=== PATIENT | female | born 1950 | race American Indian/Alaskan Native ===

== ENCOUNTER 2016-09-11 23:22 | Inpatient (IN) | payer MEDICAID, MEDICARE ==
--- NOTE | 2016-09-12 01:28 | Emergency Department Report ---
HPI - General Chief Complaint: Dyspnea/Respdistress Time Seen by Provider: 09/12/16 01:09 - HPI HPI: This is a 66-year-old Afro-[place] female presents to the emergency department from home with the complaint of pain to the left side of the chest and upper abdomen, that wraps around to the side/flank, that has been going on for the past 2 weeks and getting progressive worse. It seems like the symptoms began when the patient slipped while in the bathroom and fell on top of her walker. She never actually hit the floor, hit her head or had any loss of consciousness. Patient complains of some mild abdominal swelling for the past 2 days. This is also associated with some nausea without vomiting. It is also associated with shortness of breath, but denies any fever, cough, wheezing. The patient has been taking some gabapentin and meloxicam for her pain without much relief. She has history of hypertension, neuropathy. She is due to have surgery this for some type of procedure on her C6 and C7 spine. She has a history of back injections due to her sciatica. She's been having trouble walking lately secondary to the pain that occurs in her legs and knees. No recent travel or sick contacts at home. Her primary care doctor is a Dr. Izquierdo. ED Past Medical Hx - Past Medical History Previous Medical History?: Yes Hx Hypertension: Yes Hx Headaches / Migraines: Yes - Surgical History Past Surgical History?: Yes Additional Surgical History: myomectomy tubal ligation - Social History Smoking Status: Never Smoker - Medications Home Medications: Home Medications Medication Instructions Recorded Confirmed Last Taken Type Lisinopril [Zestril] 40 mg PO QDAY 09/10/13 09/10/13 09/10/13 08:00 History Clonidine 0.1 mg 09/12/16 Unknown History Coreg 12.5 mg 09/12/16 Unknown History Cymbalta 09/12/16 Unknown History Meloxicam 09/12/16 Unknown History Neurontin 09/12/16 Unknown History Ranitidine HCl 10 mg 09/12/16 Unknown History ED Review of Systems ROS: Stated complaint: LEFT FLANK PAIN Other details as noted in HPI Comment: All other systems reviewed and negative Constitutional: denies: chills, fever Eyes: denies: eye pain, eye discharge, vision change ENT: denies: ear pain, throat pain Respiratory: shortness of breath. denies: cough Cardiovascular: chest pain. denies: palpitations Gastrointestinal: abdominal pain, nausea. denies: vomiting Genitourinary: denies: urgency, dysuria, discharge Musculoskeletal: arthralgia. denies: back pain Skin: denies: rash, lesions Neurological: denies: headache, numbness Physical Exam - Physical Exam Vital Signs: Vital Signs 09/12/16 09/12/16 00:59 01:03 Temperature 98.7 F Pulse Rate 50 L 50 L Respiratory 17 Rate Blood Pressure 188/100 O2 Sat by Pulse 99 Oximetry Physical Exam: GENERAL: The patient is well-developed well-nourished. HEENT: Normocephalic. Atraumatic. Extraocular motions are intact. Patient has moist mucous membranes. Pupils are equal reactive to light bilaterally. NECK: Supple. Trachea is midline. CHEST/LUNGS: Clear to auscultation. There is no respiratory distress noted. Unable to reproduce patient's left-sided chest pain to palpation. HEART/CARDIOVASCULAR: Regular. There is no tachycardia. There is no gallop rub or murmur. ABDOMEN: Abdomen is soft. Unable to reproduce patient's abdominal tenderness to palpation. No guarding rebound tenderness. Patient has normal bowel sounds. There is no abdominal distention. SKIN: There is no rash. There is no edema. There is no diaphoresis. NEURO: The patient is awake, alert, and oriented. The patient is cooperative. The patient has no focal neurologic deficits. The patient has normal speech. MUSCULOSKELETAL: There is no tenderness or deformity. There is no limitation range of motion. There is no evidence of acute injury. ED Course Vital Signs 09/12/16 09/12/16 00:59 01:03 Temperature 98.7 F Pulse Rate 50 L 50 L Respiratory 17 Rate Blood Pressure 188/100 O2 Sat by Pulse 99 Oximetry ED Medical Decision Making - Lab Data Result diagrams: 09/12/16 01:29 09/12/16 01:29 - EKG Data -: EKG Interpreted by Me EKG shows normal: sinus rhythm, axis, intervals, QRS complexes, ST-T waves Rate: bradycardia (50 bpm) - EKG Data When compared to previous EKG there are: previous EKG unavailable Interpretation: normal EKG (with sinus bradycardia) - Radiology Data Radiology results: report reviewed, image reviewed interpreted by me: Chest x-ray did not show any acute process. Heart is normal shape and size. No effusions. No pneumothorax. No signs of pneumonia seen. X-ray of the abdomen shows some nonspecific bowel gas but no obvious signs of obstruction. CT angiography of the chest shows positive pulmonary emboli identified of the right lower lung subsegmental branches. Mild atelectasis and minimal pleural effusion the bilateral lower lungs. No pneumothorax. Heart is normal size. There is a slight pericardial effusion. - Medical Decision Making 66-year-old female presents to the emergency department with some left-sided chest and abdominal pain. She will occasionally have some shortness of breath. Patient was evaluated with physical exam, labs, imaging EKG. Physical exam the patient does not have any reproducible pain and does not appear toxic but still can use to discuss her discomfort. EKG is normal without ST elevation [place] , ischemia or dysrhythmia. Chest x-ray does not show any acute process. Abdominal x-ray shows a large amount of non-specific bowel gas. Patient's labs are mostly unremarkable but she did have an elevated d-dimer of about 1200. For this reason a CT angiography of the chest was done and came back showing positive pulmonary emboli in the right lower lung subsegmental branches. Patient started on IV heparin and will be admitted to hospital for further evaluation and treatment. The overnight hospitalist is aware of this patient's admission but will hand off the admission to the morning admitting hospitalist. - Differential Diagnosis PE, [place], rib fracture, costochondritis, bowel obstruction Critical Care Time: No Critical care attestation.: If time is entered above; I have spent that time in minutes in the direct care of this critically ill patient, excluding procedure time. ED Disposition Clinical Impression: Hypertensive urgency, Pulmonary embolus, right Chest pain Qualifiers: Chest pain type: unspecified Qualified Code(s): R07.9 - Chest pain, unspecified Abdominal pain Qualifiers: Abdominal location: left upper quadrant Qualified Code(s): R10.12 - Left upper quadrant pain Disposition: OP ADMITTED IP TO THIS HOSP Is pt being admited?: Yes Does the pt Need Aspirin: Yes Condition: Stable Instructions: Chest Pain (ED) Referrals: PRIMARY CARE, [Primary Care Provider] - 3-5 Days Time of Disposition: 05:37
[2016-09-12 01:51] LABS: Hematocrit 41.6 % (30.3-42.9); Hemoglobin 13.6 gm/dl (10.1-14.3); Mean Corpuscular HGB Conc 33 % (30-34); Mean Corpuscular Hemoglobin 30 pg (28-32); Mean Corpuscular Volume 90 fl (79-97); Platelet Count 186 K/mm3 (140-440); Red Blood Count 4.61 M/mm3 (3.65-5.03); Red Cell Distribution Width 13.4 % (13.2-15.2); White Blood Count 6.8 K/mm3 (4.5-11.0)
[2016-09-12 02:02] LABS: INR 1.06 (0.87-1.13)
[2016-09-12 02:03] LABS: Partial Thromboplastin Time 26.9 Sec. (24.2-36.6)
[2016-09-12 02:05] LABS: Creatine Kinase MB 1.9 ng/mL (0.0-4.0)
[2016-09-12 02:07] LABS: Alanine Aminotransferase 14 units/L (7-56); Albumin 4.1 g/dL (3.9-5); Albumin/Globulin Ratio 1.8 %; Alkaline Phosphatase 98 units/L (35-129); Anion Gap 15 mmol/L; Bilirubin,Total 0.3 mg/dL (0.1-1.2); Blood Urea Nitrogen 18 mg/dL (7-17); Calcium 10.6 mg/dL (8.4-10.2); Carbon Dioxide 28 mmol/L (22-30); Chloride 101.7 mmol/L (98-107); Creatine Kinase 105 units/L (30-135); Glucose 120 mg/dL (65-100); Lipase 21 units/L (13-60); Potassium 3.5 mmol/L (3.6-5.0); Sodium 141 mmol/L (137-145); Total Protein 6.4 g/dL (6.3-8.2)
[2016-09-12] MEDS ORDERED: NACL ONE (02:31)
--- NOTE | 2016-09-12 04:19 | Cat Scan Report ---
FINAL REPORT PROCEDURE: CT ANGIO CHEST TECHNIQUE: Computerized tomographic angiography of the chest was performed after the IV injection of iodinated nonionic contrast including image processing. The image data was postprocessed using 2-dimensional multiplanar reformatted (MPR) and 3-dimensional (MIP and/or volume rendered) techniques. HISTORY: CP, elevated dimer COMPARISON: No prior studies are available for comparison. FINDINGS: Heart and pericardium: Heart size is normal. There is a slight pericardial effusion.. Thoracic aorta: Normal. Pulmonary vasculature: There is pulmonary arterial emboli identified in the subsegmental branches of the right lower lung.. Lymph nodes: No enlarged thoracic lymph nodes. Lungs: Mild atelectasis and slight pleural effusion identified in both lower lungs. The central airway is patent.. Pleural space: Mild lower lung effusions. No pneumothorax.. Musculoskeletal structures: Mild degenerative changes of the thoracic spine.. Upper abdominal structures: No significant abnormality. IMPRESSION: Positive pulmonary emboli identified in the right lower lung subsegmental branches. Mild atelectasis and minimal pleural effusion bilateral lower lungs. No pneumothorax. The heart size is normal. There is a slight pericardial effusion. The above critical findings are discussed with the patient's ER care provider at the time of dictation 0315 central standard time on 09/12/2016
[2016-09-12] MEDS ORDERED: HEPARIN 10,000 UNITS/10 ML IV ONE (04:21)
[2016-09-12] MEDS ORDERED: MORPHINE IV ONE (04:37)
[2016-09-12] MEDS: HEPARIN/ 0.45% NACL-25,000 UNIT/500 ML 25,000 UNIT/500 ML BAG IV SCH ×2 (05:23→13:18)
[2016-09-12] MEDS ORDERED: APRESOLINE IV ONE (05:36)
[2016-09-12] MEDS ORDERED: BABY ASPIRIN PO ONE (05:38)
--- NOTE | 2016-09-12 07:14 | Admit Criteria Form ---
Admission Criteria Documentation: PULMONARY EMBOLISM Clinical Indications for Admission to Inpatient Care (Place 'X' for any and all applicable criteria): Admission is indicated by ANY ONE of the following 1,2,3,4,5 [ ]I. Onset of hypoxia [ ]II. Hemodynamic instability 5 [ ]III. Massive pulmonary embolism (eg, acute embolism causing sustained hypotension, pulselessness, or bradycardia)5 [ ]IV. Need for IV narcotics (eg, to treat dyspnea) [ ]V. Current use of home oxygen therapy [ ]. Active bleeding [ ]VII. Recent surgery [ ]VIII. Active peptic ulcer disease [ ]IX. Documented extensive thrombosis (eg, clot in vena cava or above iliofemoral bifurcation) [ ]X. Embolism while on anticoagulation [ ]XI. 6 [X]XII. Appropriate monitoring and therapy cannot be provided in home or outpatient setting. [ ]XIII. Systemic or catheter-directed thrombolysis 5,7 [ ]XIV. Catheter embolectomy and fragmentation 6 [ ]XV. Vena cava filter placement5 [ ]XVI. Severely diminished cardiopulmonary reserve (eg, cor pulmonale, pulmonary hypertension) [ ]XVII. Severe renal failure (eg, GFR less than 30 mL/min/1.73m2 (0.5 mL/sec/ 1.73m2)) [ ]XVIII.Right ventricular dysfunction (eg, by echocardiogram) 6,11 [ ]XIX. Positive cardiac biomarker (eg, troponin T or I > 0.1 ng/mL (mcg/L), highly sensitive troponin I assay greater than 0.014 ng/mL (mcg/L), BNP or NT proBNP > assay threshold)5,8,9 [ ]XX. Known clotting abn or def (eg, liver disease, antithrombin III, protein C, or protein S abnormality) [ ]XXI. History of heparin-induced thrombocytopenia [X]XXII. Inpatient admission required rather than observation care (Also use Pulmonary Embolism: Observation Care guideline as appropriate) because of ANY ONE of the following: [ ] a) Significant autoimmune (thrombocytopenia) or coagulopathic reaction occurs in response to anticoagulation [ ] b) Respiratory symptoms (eg, tachypnea, dyspnea) that are severe or persistent [X] c) Other condition, treatment, or monitoring requiring inpatient admission Extended stay beyond goal length of stay may be needed for 3,28 [ ]a) Hemorrhage or recent surgery [ ]b) Recurrent thromboembolism [ ]c) Persistent hypoxemia [ ]d) Heparin-induced thrombocytopenia The original [facility] [employer] content created by [facility] [employer] has been revised. The portions of the content which have been revised are identified through the use of italic text or in bold, and [facility] has neither reviewed nor approved the modified material. All other unmodified content is copyright [facility] [employer]. Please see references footnoted in the original [facility] edition 2016 Admission Criteria Met: Yes
--- NOTE | 2016-09-12 07:33 | XRay Report ---
ABDOMINAL SERIES: History: Chest and abdominal pain. Erect chest film shows no acute or significant changes involving the heart or lung bonner. There is no evidence of free air beneath the diaphragms. The gas pattern within the abdomen is unremarkable. There is no evidence of bowel dilatation, significant air-fluid levels, or masses. The psoas margins are adequately visualized. IMPRESSION: Normal abdominal series.
[2016-09-12 07:48] LABS: Bilirubin,Urine NEG (Negative); Blood,Urine NEG (Negative); Ketones,Urine TR mg/dL (Negative); Leukocyte Esterase,Urine SM (Negative); Mucus,Urine FEW /HPF; Nitrite,Urine NEG (Negative); Protein,Urine <15 mg/dL mg/dL (Negative); Urobilinogen,Urine < 2.0 mg/dL (<2.0)
[2016-09-12 07:58] LABS: Creatine Kinase 100 units/L (30-135)
[2016-09-12] MEDS ORDERED: BABY ASPIRIN ONE (08:21)
[2016-09-12] MEDS ORDERED: AMBIEN PO PRN (09:30)
[2016-09-12] MEDS ORDERED: K-DUR PO ONE ×2 (09:39→10:14)
[2016-09-12] MEDS ORDERED: DULCOLAX PR PRN (10:00)
[2016-09-12] MEDS ORDERED: D5/0.45NS 1,000 ML IV SCH (10:00)
[2016-09-12] MEDS ORDERED: CYMBALTA 30 MG PO SCH (10:00)
[2016-09-12] MEDS ORDERED: NON-FORMULARY (Coreg 12.5 MG) PO SCH (10:00)
[2016-09-12] MEDS ORDERED: ALUM-MAG HYDROX-SIMETH 200-200-20MG/5ML PO PRN (10:00)
[2016-09-12] MEDS ORDERED: COREG ONE (10:35)
[2016-09-12] MEDS ORDERED: MORPHINE ONE (10:35)
[2016-09-12] MEDS ORDERED: CYMBALTA ONE (10:36)
[2016-09-12] MEDS: CYMBALTA PO SCH (10:49)
[2016-09-12] MEDS: MORPHINE IV PRN ×2 (10:50→21:51)
[2016-09-12] MEDS ORDERED: COREG PO SCH (11:00)
[2016-09-12] MEDS ORDERED: NORMODYNE IV PRN (11:00)
[2016-09-12] MEDS ORDERED: NORMODYNE IV ONE (11:09)
--- NOTE | 2016-09-12 11:32 | Consultation ---
History of Present Illness Consult date: 09/12/16 Requesting physician: DEIRDRE CRUZ History of present illness: PULMONARY/CCM CONSULT NOTE (full dictation # [id number]) Please see dictated notes for full details Medications and Allergies Allergies Allergy/AdvReac Type Severity Reaction Status Date / Time amlodipine Allergy Rash Verified 09/10/13 21:27 hydralazine Allergy Hives Verified 09/12/16 10:31 hydrochlorothiazide Allergy Rash Verified 09/10/13 21:27 Sulfa (Sulfonamide Allergy Rash Verified 09/10/13 21:27 Antibiotics) Home Medications Medication Instructions Recorded Confirmed Last Taken Type Lisinopril [Zestril] 40 mg PO QDAY 09/10/13 09/12/16 09/10/13 08:00 History Clonidine 0.1 mg 09/12/16 Unknown History Coreg 12.5 mg 09/12/16 Unknown History Cymbalta 09/12/16 Unknown History Meloxicam 09/12/16 Unknown History Neurontin 09/12/16 Unknown History Ranitidine HCl 10 mg 09/12/16 Unknown History Active Meds: Active Medications Al Hydrox/Mg Hydrox/Simethicone (Alum-Mag Hydrox-Simeth [id number]/5ml) 30 ml PO Q4H PRN PRN Reason: Indigestion Bisacodyl (Dulcolax) 10 mg [place] QDAY PRN PRN Reason: constipation unrelieved by MOM Carvedilol (Coreg) 12.5 mg PO BIDBL [facility] Last Admin: 09/12/16 10:49 Dose: 12.5 mg Duloxetine HCl (Cymbalta) 30 mg PO QDAY [facility] Last Admin: 09/12/16 10:49 Dose: 30 mg Heparin Sodium/Sodium Chloride (Heparin/ 0.45% Nacl-25,000 Unit/500 Ml) 25,000 unit in 500 mls @ 21 mls/hr IV TITR DARELL; 1,050 UNITS/HR PRN Reason: Protocol Last Titration: 09/12/16 10:02 Dose: 0 units/hr, 0 mls/hr Dextrose/Sodium Chloride (D5/0.45ns) 1,000 mls @ 42 mls/hr IV DIRECT DARELL Labetalol HCl (Normodyne) 10 mg IV Q6H PRN PRN Reason: Blood Pressure Magnesium Hydroxide (Milk Of Magnesia) 30 ml PO Q4H PRN PRN Reason: Constipation Morphine Sulfate (Morphine) 2 mg IV Q4H PRN PRN Reason: Pain, Moderate (4-6) Last Admin: 09/12/16 10:50 Dose: 2 mg Ondansetron HCl (Zofran) 4 mg IV Q8H PRN PRN Reason: N/V unrelieved by Nixon Mcdonnell (Senokot) 8.6 mg PO BID PRN PRN Reason: Constipation Zolpidem Tartrate (Ambien) 5 mg PO QHS PRN PRN Reason: Sleeplessness Physical Examination Vital signs: Vital Signs Pulse Ox 90 09/11/16 23:14 Results - Laboratory Findings CBC and BMP: 09/12/16 01:29 09/12/16 01:29 PT/INR, D-dimer PT 13.7 Sec. (12.2-14.9) 09/12/16 01:29 INR 1.06 (0.87-1.13) 09/12/16 01:29 D-Dimer 1320.93 ng/mlDDU (0-234) H 09/12/16 01:29
--- NOTE | 2016-09-12 12:06 | Consultation ---
History of Present Illness Consult date: 09/12/16 Consult reason: hypertension History of present illness: This is a 66yr old woman reports a history of sciatica and is wheelchair bound due to trouble walking and pain in her knees presents to the ED with the complaints left sided pain. Patient reports 2 weeks ago she fell while in the bathroom hitting injuring her left side. Pain has progressively worsened for the past 2 weeks. She denies loss of consciousness. Noted hypertensive, BP 209/ 98. Patient on clonidine, coreg and lisinopril for management at home. Her ECG shows a sinus bradycardia rate 50, otherwise normal. Found to have an acute pulmonary embolism by chest CTA and admitted for treatment. Cardiac consultation requested for hypertension management. Medications and Allergies Allergies Allergy/AdvReac Type Severity Reaction Status Date / Time amlodipine Allergy Rash Verified 09/10/13 21:27 hydralazine Allergy Hives Verified 09/12/16 10:31 hydrochlorothiazide Allergy Rash Verified 09/10/13 21:27 Sulfa (Sulfonamide Allergy Rash Verified 09/10/13 21:27 Antibiotics) Home Medications Medication Instructions Recorded Confirmed Last Taken Type Lisinopril [Zestril] 40 mg PO QDAY 09/10/13 09/12/16 09/10/13 08:00 History Clonidine 0.1 mg 09/12/16 Unknown History Coreg 12.5 mg 09/12/16 Unknown History Cymbalta 09/12/16 Unknown History Meloxicam 09/12/16 Unknown History Neurontin 09/12/16 Unknown History Ranitidine HCl 10 mg 09/12/16 Unknown History Active Meds: Active Medications Al Hydrox/Mg Hydrox/Simethicone (Alum-Mag Hydrox-Simeth [phone]/5ml) 30 ml PO Q4H PRN PRN Reason: Indigestion Bisacodyl (Dulcolax) 10 mg [place] QDAY PRN PRN Reason: constipation unrelieved by MOM Carvedilol (Coreg) 12.5 mg PO BIDBL [facility] Last Admin: 09/12/16 10:49 Dose: 12.5 mg Duloxetine HCl (Cymbalta) 30 mg PO QDAY [facility] Last Admin: 09/12/16 10:49 Dose: 30 mg Heparin Sodium/Sodium Chloride (Heparin/ 0.45% Nacl-25,000 Unit/500 Ml) 25,000 unit in 500 mls @ 21 mls/hr IV TITR DARELL; 1,050 UNITS/HR PRN Reason: Protocol Last Titration: 09/12/16 10:02 Dose: 0 units/hr, 0 mls/hr Dextrose/Sodium Chloride (D5/0.45ns) 1,000 mls @ 42 mls/hr IV DIRECT DARELL Magnesium Hydroxide (Milk Of Magnesia) 30 ml PO Q4H PRN PRN Reason: Constipation Morphine Sulfate (Morphine) 2 mg IV Q4H PRN PRN Reason: Pain, Moderate (4-6) Last Admin: 09/12/16 10:50 Dose: 2 mg Ondansetron HCl (Zofran) 4 mg IV Q8H PRN PRN Reason: N/V unrelieved by Nixon Mcdonnell (Senokot) 8.6 mg PO BID PRN PRN Reason: Constipation Zolpidem Tartrate (Ambien) 5 mg PO QHS PRN PRN Reason: Sleeplessness Physical Examination Vital Signs Pulse Ox 90 09/11/16 23:14 General appearance: no acute distress HEENT: Positive: PERRL Neck: Positive: trachea midline Cardiac: Positive: Reg Rate and Rhythm Lungs: Positive: Decreased Breath Sounds Results 09/12/16 01:29 09/12/16 01:29 EKG interpretations - EKG Sinus rhythms and dysrhythmias: sinus bradycardia Assessment and Plan Acute Pulmonary embolism by CTA on IV heparin Hypertension -uncontrolled allergy to norvasc, hydralazine and hctz Hx of Sciatica Plan: Echocardiogram for LVEF assessment. Will stop clonidine and coreg secondary to sinus bradycardia on presentation. BP management with diovan.
--- NOTE | 2016-09-12 13:39 | History and Physical Report ---
History of Present Illness Date of examination: 09/12/16 Date of admission: 09/12/16 09:30 Chief complaint: Shortness of breath and Left lower chest pain for 1 week History of present illness: 65-year-old female with history of hypertension chronic lower back pain and apparently C-spine disc disease with bilateral lower extremity weakness, basically wheelchair bound for more than 2 months presents to the emergency room with above complaint and was found to have an acute right lower lobe subsegmental pulmonary embolism on CTA of the chest and she is admitted for further management. He says she had a fall in the bathroom 2 weeks ago and since then she has been having pain in the left lower chest and under the left breast She says she was advised to have surgery on her C-spine is considering it at [facility] when she had a fall 2 weeks ago and has not rescheduled her appointment Past History Past Medical History: GERD, hypertension, other (low backache) Past Surgical History: Other ( myomectomy) Social history: no significant social history Family history: diabetes Medications and Allergies Allergies Allergy/AdvReac Type Severity Reaction Status Date / Time amlodipine Allergy Rash Verified 09/10/13 21:27 hydralazine Allergy Hives Verified 09/12/16 10:31 hydrochlorothiazide Allergy Rash Verified 09/10/13 21:27 Sulfa (Sulfonamide Allergy Rash Verified 09/10/13 21:27 Antibiotics) Home Medications Medication Instructions Recorded Confirmed Last Taken Type Lisinopril [Zestril] 40 mg PO QDAY 09/10/13 09/12/16 09/10/13 08:00 History Clonidine 0.1 mg 09/12/16 Unknown History Coreg 12.5 mg 09/12/16 Unknown History Cymbalta 09/12/16 Unknown History Meloxicam 09/12/16 Unknown History Neurontin 09/12/16 Unknown History Ranitidine HCl 10 mg 09/12/16 Unknown History Active Meds: Active Medications Al Hydrox/Mg Hydrox/Simethicone (Alum-Mag Hydrox-Simeth [phone]/5ml) 30 ml PO Q4H PRN PRN Reason: Indigestion Bisacodyl (Dulcolax) 10 mg [place] QDAY PRN PRN Reason: constipation unrelieved by MOM Duloxetine HCl (Cymbalta) 30 mg PO QDAY [facility] Last Admin: 09/12/16 10:49 Dose: 30 mg Famotidine (Pepcid) 20 mg PO QDAY [facility] Heparin Sodium/Sodium Chloride (Heparin/ 0.45% Nacl-25,000 Unit/500 Ml) 25,000 unit in 500 mls @ 21 mls/hr IV TITR DARELL; 1,050 UNITS/HR PRN Reason: Protocol Last Admin: 09/12/16 13:18 Dose: 1,120 units/hr, 22.4 mls/hr Dextrose/Sodium Chloride (D5/0.45ns) 1,000 mls @ 42 mls/hr IV DIRECT DARELL Losartan Potassium (Cozaar) 100 mg PO QDAY [facility] Magnesium Hydroxide (Milk Of Magnesia) 30 ml PO Q4H PRN PRN Reason: Constipation Morphine Sulfate (Morphine) 2 mg IV Q4H PRN PRN Reason: Pain, Moderate (4-6) Last Admin: 09/12/16 10:50 Dose: 2 mg Ondansetron HCl (Zofran) 4 mg IV Q8H PRN PRN Reason: N/V unrelieved by Nixon Mcdonnell (Senokot) 8.6 mg PO BID PRN PRN Reason: Constipation Zolpidem Tartrate (Ambien) 5 mg PO QHS PRN PRN Reason: Sleeplessness Review of Systems Constitutional: weakness, no weight loss, no weight gain, no fever, no chills Ears, nose, mouth and throat: no ear pain, no nasal discharge, no sore throat, no headache Cardiovascular: chest pain (in the left lower chest which is nonexertional), high blood pressure, no orthopnea, no palpitations, no syncope, no lightheadedness, no shortness of breath Respiratory: no cough, no shortness of breath Gastrointestinal: no abdominal pain, no nausea, no vomiting, no diarrhea, no constipation, no melena Genitourinary Female: no dysuria, no urinary frequency, no stress incontinence, no urge incontinence Rectal: no pain Musculoskeletal: low back pain, limitation of motion Neurological: weakness (in both lower extremities), no head injury, no seizures , no syncope Psychiatric: no anxiety, no depression Endocrine: no polyuria, no nocturia Exam - Constitutional Vitals: Temp Pulse Resp BP Pulse Ox 98.7 F 58 L 10 L 170/89 99 09/12/16 00:59 09/12/16 12:00 09/12/16 12:00 09/12/16 12:00 09/12/16 00:59 General appearance: Present: no acute distress, well-nourished - EENT Eyes: Present: PERRL, EOM intact ENT: hearing intact, clear oral mucosa, no thrush - Neck Neck: Present: supple, normal ROM - Respiratory Respiratory effort: normal Respiratory: bilateral: CTA - Cardiovascular Rhythm: regular Heart Sounds: Present: S1 & S2 - Extremities Extremities: No edema - Abdominal General gastrointestinal: Present: soft, non-tender. Absent: hepatomegaly, splenomegaly - Rectal Rectal Exam: deferred - Integumentary Integumentary: Present: clear - Musculoskeletal Musculoskeletal: other (bilateral lower extremity weakness, per power in the lower extremities is 2 over 5 and in the upper extremities it is 4 over 5) Results - Labs CBC & Chem 7: 09/12/16 01:29 09/12/16 01:29 Assessment and Plan - Patient Problems (1) Pulmonary embolus, right Current Visit: Yes Status: Acute Plan to address problem: Started on intravenous heparin With to ICU Cardiology and pulmonary consults on board (2) Paraparesis of both lower limbs Current Visit: Yes Status: Acute Plan to address problem: PT and OT consult This needs to be addressed as an outpatient once she stabilized on her pulmonary embolism (3) Hypertensive urgency Current Visit: Yes Status: Acute Plan to address problem: Continue beta norman She has mild bradycardia Start on losartan She is allergic to several antihypertensives
[2016-09-12] MEDS ORDERED: DIOVAN PO ONE (14:00)
[2016-09-12] MEDS ORDERED: COZAAR PO SCH (14:00)
[2016-09-12] MEDS: DIOVAN PO SCH ×2 (16:15→21:52)
--- NOTE | 2016-09-13 02:23 | Consultation ---
CONSULTING PHYSICIAN: Milton Cristina MD. REASON FOR CONSULTATION: Critical care admission, acute pulmonary embolus. CHIEF COMPLAINT AND HISTORY OF PRESENT ILLNESS: The patient is a 66-year-old -[place] female with past medical history amongst other things significant for severe sciatica that has degenerated to the point where she is mostly immobile, came into the Emergency Room complaining of left side of her chest and upper abdominal pain that was rocking into the flank. She stated that she had falling in her bathroom about a couple of weeks ago trying to clean herself up without assistance which she normally has. Never thought there was anything major, she did not actually hit the fall; however, over the preceding couple of days it has been increased to a point where she has had difficulty breathing. Denied any particular chest pains where she had some nausea without vomiting. She was apparently being prepped for some surgical procedure on really nonspecific symptoms; however, as part of the workup, thankfully a CTA was done which reportedly revealed pulmonary emboli. She was placed on IV heparin drip and the plan was to transfer her to the Intensive Care Unit. When I stopped by to see her, she was resting in the ER. She was on room air, talking to me in full sentences. Denied any gross or streaky hemoptysis. She did admit to some left lower extremity swelling. Denies tobacco use or abuse history whatsoever. That really is as much of the history of presentation as I have. PAST MEDICAL HISTORY: Again, significant for hypertension, migraines, sciatica. PAST SURGICAL HISTORY: She has had a myomectomy and tubal ligation. MEDICATIONS: She was on at the time I stopped by to see her, according to the medication administration record included the following: Coreg 12.5 mg p.o. b.i.d., Cymbalta 30 mg p.o. daily, D5 half NS at 42 mL per hour. She was on IV heparin drip per pulmonary embolus protocol, morphine 2 mg IV q. 4 hours p.r.n. pain, Zofran 4 mg IV q. 8 hours p.r.n. nausea and vomiting, and Ambien 5 mg p.o. at bedtime p.r.n. insomnia. ALLERGIES: To amlodipine, to hydralazine, to hydrochlorothiazide. Nature of this allergy is unknown. DIET: Slightly obese lady, denies any acute weight loss or gain in the preceding few weeks to months. FAMILY AND SOCIAL HISTORY: Lives in the community. Denies alcohol, tobacco, or illicit drug use or abuse. REVIEW OF SYSTEMS: No overt loss of consciousness. No new onset seizures. She has had the left lower extremity and left-sided pain and weakness. Denies gross hematochezia or melena. No gross hematuria or dysuria. No hematemesis. No hemoptysis. Denies any odynophagia or dysphagia. Denies any change in her voice or hoarseness. Complete review of systems was obtained. Pertinent positives and/or negatives as in body of history above, otherwise they are noncontributory. PHYSICAL EXAMINATION: VITAL SIGNS: At presentation in the emergency room, she was afebrile, temperature 98.0, pulse was 50, respiratory rate was 17, blood pressure was 209/98, oxygen sats were 99%. Inspired oxygen concentration was not recorded. HEAD, EYES, EARS, NOSE, AND THROAT: Pupils are equal, round, reactive to light, about 3 mm. Extraocular muscle movements are intact. Oropharynx is Mallampati #2 oropharynx, mild oropharyngeal pallor. LUNGS: Auscultation of both lung bonner, lungs are clear bilaterally, no wheezing. HEART: Heart sounds 1 and 2 are heard, irregular rate and rhythm at the time of my evaluation. ABDOMEN: Soft, full, bowel sounds are positive. Tender in the left upper quadrant area laterally. EXTREMITIES: Without overt digital clubbing, cyanosis, or pedal edema. NEUROLOGIC: The exam is limited more by pain. LABORATORY DATA: For my review are as follows: White cell count 6800, hemoglobin 13.6, hematocrit 41.6, platelets 186. INR 1.06. D-dimer was elevated at 1320. Serum sodium 141, potassium 3.5, chloride 102, bicarbonate 28, BUN 18, creatinine 0.5, and glucose 120. Cardiac enzymes within normal limits. Urinalysis unremarkable. Radiographic studies have been reviewed. I have also reviewed the radiologist's interpretation. I do see filling defects in the right lower lobe branches of the right pulmonary artery. There are some areas of atelectasis plus possible small pleural effusions. It is unclear if this is the right subclavian artery, appears to have a tortuous course through the first of all going anteriorly around the thyroid area and then probably headed downwards what may correspond to the pulsations that I feel during the exam in the right carotid area, ASSESSMENT AND PLAN: I should mention that the lung windows are essentially unremarkable again except for the basilar atelectasis/dependent atelectasis. From a respiratory standpoint, she is relatively stable and on room air. Again, I am bothered about the abnormal pulsations that I do feel in the right carotid region, does not appear to be carotid artery. We will continue the IV heparin drip for now, keep a close eye on her and continue to treat for PE protocol. Supplemental oxygen will be given as necessary to keep sats greater than or equal to 92%. Aspiration precautions will be maintained. From a cardiovascular standpoint, I will continue the IV heparin therapy for now. Again, her arrhythmia, she goes as high as the 80s and then goes right down to the mid 50s without much provocation. The EKG showed a sinus bradycardia at that time, but I will try and repeat another EKG to make sure we are not missing something, plus or minus get Cardiology evaluation. Cardiac enzymes are unremarkable and CTA does not show any particular dissection. I will go ahead and discuss with the radiologist, this might be a normal variant of the subclavian artery on that side. Blood pressures are running high. I was going to use p.r.n. labetalol, but the bradycardia is bothersome. I was going to use p.r.n. hydralazine, but she has an allergy to it, which I will ask her about that. I will be getting Cardiology assistance with managing her arrhythmia at this point. From a GI and nutritional standpoint, she will be placed on GI prophylaxis. Aspiration precautions will be maintained. Oral nutrition will be the feeding modality of choice. From a renal standpoint, no major electrolyte abnormalities. We will follow her clinically. Inputs and outputs will be monitored. From a SKETCH LINER standpoint, the exam is grossly nonfocal. The left side movement is limited mostly by pain at this point, although she tells me that she is seeing a doctor in the community, it is unclear if she will need Neurology evaluation while she is here. From infectious disease standpoint, no signs and symptoms of overwhelming sepsis. We will follow her clinically. From a general and hospital healthcare maintenance standpoint, she is going to be on GI prophylaxis. She is on full anticoagulation. Flu and pneumonia vaccination will be per protocol. Thank you very much for the consult Dr. Cristina. We will follow her along. With this constellation of symptoms, dysrythmia, the aberrant subclavian vessel, possible risk of bleeding on heparin, we will watch her in the Intensive Care Unit overnight and make a decision on transfer in the morning. I have discussed her case with Vascular and carotid ultrasound has been ordered and we will see if there is any need for Vascular Surgery intervention. Thank you very much for the consult. We will follow her and make further recommendations as picture progresses/becomes clearer. JOB# [id number] AMANDA/YEE
[2016-09-13 06:15] LABS: Basophils % (Auto) 1.1 % (0.0-1.8); Eosinophils % (Auto) 3.6 % (0.0-4.3); Hematocrit 39.4 % (30.3-42.9); Mean Corpuscular HGB Conc 33 % (30-34); Mean Corpuscular Hemoglobin 30 pg (28-32); Mean Corpuscular Volume 90 fl (79-97); Platelet Count 173 K/mm3 (140-440); Red Blood Count 4.37 M/mm3 (3.65-5.03); Red Cell Distribution Width 13.6 % (13.2-15.2); White Blood Count 5.4 K/mm3 (4.5-11.0)
[2016-09-13 06:30] LABS: Anion Gap 16 mmol/L; Blood Urea Nitrogen 15 mg/dL (7-17); Calcium 10.4 mg/dL (8.4-10.2); Carbon Dioxide 24 mmol/L (22-30); Chloride 106.6 mmol/L (98-107); Glucose 105 mg/dL (65-100); Sodium 143 mmol/L (137-145)
[2016-09-13] MEDS: PEPCID PO SCH (09:37)
[2016-09-13] MEDS: CYMBALTA PO SCH (09:37)
[2016-09-13] MEDS: DIOVAN PO SCH ×2 (09:37→21:20)
[2016-09-13] MEDS: MORPHINE IV PRN ×3 (09:39→21:26)
--- NOTE | 2016-09-13 11:15 | Progress Note ---
Assessment and Plan Acute Pulmonary embolism by CTA on IV heparin Hypertension - allergy to norvasc, hydralazine and hctz clonidine and coreg discontinued due to sinus bradycardia on her presenting ECG Hx of Sciatica Plan: Echocardiogram today for LVEF assessment. Optimal BP management with diovan. Subjective Date of service: 09/13/16 Interval history: Patient complains of left sided pain. She denies chest pain and shortness of breath. Objective Vital Signs Temp Pulse Resp Resp BP Pulse Ox 09/13/16 10:00 12 09/13/16 09:39 12 09/13/16 09:37 66 191/111 09/13/16 09:01 61 13 210/113 99 09/13/16 08:01 60 14 210/113 96 09/13/16 07:55 98.3 F 09/13/16 07:00 59 L 11 L 167/90 95 09/13/16 06:01 59 L 9 L 171/80 95 09/13/16 05:01 64 10 L 170/89 94 09/13/16 04:00 62 11 L 160/76 93 09/13/16 03:01 58 L 11 L 184/94 96 09/13/16 02:00 59 L 9 L 155/82 96 09/13/16 01:00 65 10 L 138/92 93 09/13/16 00:55 97.9 F 09/13/16 00:00 61 13 141/76 95 09/12/16 23:00 61 10 L 151/85 95 09/12/16 22:27 63 17 171/101 81 L 09/12/16 22:01 63 13 171/101 96 09/12/16 21:52 160/100 09/12/16 21:00 59 L 15 160/100 96 09/12/16 20:09 97.9 F 09/12/16 20:00 59 L 13 165/89 97 09/12/16 19:00 60 15 156/91 98 09/12/16 18:01 60 9 L 152/86 96 09/12/16 17:01 60 14 122/71 86 09/12/16 16:15 58 L 122/71 09/12/16 16:00 98 F 53 L 10 L 122/71 97 09/12/16 15:01 57 L 11 L 83 L 09/12/16 14:14 68 14 97 09/12/16 13:38 63 14 95 09/12/16 12:00 58 L 10 L 170/89 - Physical Examination General: No Apparent Distress HEENT: Positive: PERRL Neck: Positive: trachea midline Cardiac: Positive: Reg Rate and Rhythm Lungs: Positive: Decreased Breath Sounds - Labs and Meds CBC 09/13/16 Range/Units 05:51 WBC 5.4 (4.5-11.0) K/mm3 RBC 4.37 (3.65-5.03) M/mm3 Hgb 13.0 (10.1-14.3) gm/dl Hct 39.4 (30.3-42.9) % Plt Count 173 (140-440) K/mm3 Lymph # 1.6 (1.2-5.4) K/mm3 [place] # 0.5 (0.0-0.8) K/mm3 Eos # 0.2 (0.0-0.4) K/mm3 Baso # 0.1 (0.0-0.1) K/mm3 Comprehensive Metabolic Panel 09/13/16 Range/Units 05:51 Sodium 143 (137-145) mmol/L Potassium 4.0 (3.6-5.0) mmol/L Chloride 106.6 (98-107) mmol/L Carbon Dioxide 24 (22-30) mmol/L BUN 15 (7-17) mg/dL Creatinine 0.5 L (0.7-1.2) mg/dL Glucose 105 H (65-100) mg/dL Calcium 10.4 H (8.4-10.2) mg/dL - EKG Sinus rhythms and dysrhythmias: sinus bradycardia
--- NOTE | 2016-09-13 11:25 | Progress Note ---
Assessment and Plan - Patient Problems (1) Acute pulmonary embolism Current Visit: Yes Status: Acute Qualifiers: Pulmonary embolism type: P Acute cor pulmonale presence: A Plan to address problem: - continue heparin IV - begin coumadin - no indication for IVC filter placement - prn oxygen therapy (2) Chest pain Current Visit: Yes Status: Acute Qualifiers: Chest pain type: unspecified Qualified Code(s): R07.9 - Chest pain, unspecified Plan to address problem: - resolved (3) Hypertensive urgency Current Visit: Yes Status: Acute Plan to address problem: - begin clonidine 0.1mg q8h - other meds per cardiology - avoid hydralazine (4) Paraparesis of both lower limbs Current Visit: Yes Status: Acute Plan to address problem: - PT/OT - hold on spinal surgery re: acute P.E. for now Subjective Date of service: 09/13/16 Principal diagnosis: Acute Pulmonary Embolus; Uncontrolled HTN Interval history: Seen and examined at bedside; 24 hour events reviewed; nursing and respiratory care staff consulted; no adverse overnight events reported to me; doing better but BP's still running high with accompanying low pulse rate; denies acute chest pains or increased SOB; states that she was on clonidine at home; states that her allergy to hydralazine is real and involves itching and a rash/welts Objective Vital Signs - 12hr 09/13/16 09/13/16 09/13/16 00:00 00:55 01:00 Temperature 97.9 F Pulse Rate 61 65 Respiratory 13 10 L Rate Respiratory Rate [Left Hip] Blood Pressure 141/76 138/92 O2 Sat by Pulse 95 93 Oximetry 09/13/16 09/13/16 09/13/16 02:00 03:01 04:00 Temperature Pulse Rate 59 L 58 L 62 Respiratory 9 L 11 L 11 L Rate Respiratory Rate [Left Hip] Blood Pressure 155/82 184/94 160/76 O2 Sat by Pulse 96 96 93 Oximetry 09/13/16 09/13/16 09/13/16 05:01 06:01 07:00 Temperature Pulse Rate 64 59 L 59 L Respiratory 10 L 9 L 11 L Rate Respiratory Rate [Left Hip] Blood Pressure 170/89 171/80 167/90 O2 Sat by Pulse 94 95 95 Oximetry 09/13/16 09/13/16 09/13/16 07:55 08:00 08:01 Temperature 98.3 F Pulse Rate 60 Respiratory 14 Rate Respiratory Rate [Left Hip] Blood Pressure 210/113 O2 Sat by Pulse 99 96 Oximetry 09/13/16 09/13/16 09/13/16 09:01 09:37 09:39 Temperature Pulse Rate 61 66 Respiratory 13 12 Rate Respiratory Rate [Left Hip] Blood Pressure 210/113 191/111 O2 Sat by Pulse 99 Oximetry 09/13/16 09/13/16 09/13/16 10:00 10:01 11:01 Temperature Pulse Rate 66 60 67 Respiratory 16 16 Rate Respiratory 12 Rate [Left Hip] Blood Pressure 191/111 187/104 O2 Sat by Pulse 98 96 Oximetry Constitutional: no acute distress Eyes: non-icteric ENT: oropharynx moist Neck: supple Effort: normal Ascultation: Bilateral: clear, diminished breath sounds Cardiovascular: regular rate and rhythm Gastrointestinal: normoactive bowel sounds, soft, non-tender, non-distended Integumentary: normal Extremities: no cyanosis, no edema, pulses normal, no ischemia or petechiae Psychiatric: mood appropriate, affect normal CBC and BMP: 09/13/16 05:51 09/13/16 05:51 ABG, PT/INR, D-dimer: PT/INR, D-dimer PT 13.7 Sec. (12.2-14.9) 09/12/16 01:29 INR 1.06 (0.87-1.13) 09/12/16 01:29 D-Dimer 1320.93 ng/mlDDU (0-234) H 09/12/16 01:29 Abnormal lab findings: Abnormal Labs 09/12/16 09/13/16 09/13/16 19:58 05:51 05:51 [place] % (Auto) 9.1 H Heparin Anti-Xa Level 1.04 H Creatinine 0.5 L Glucose 105 H Calcium 10.4 H 09/13/16 08:51 [place] % (Auto) Heparin Anti-Xa Level 0.27 L Creatinine Glucose Calcium Chest x-ray: image reviewed
[2016-09-13] MEDS ORDERED: CATAPRES PO SCH (13:00)
[2016-09-13] MEDS: PROCARDIA XL PO SCH (13:10)
--- NOTE | 2016-09-13 14:59 | Progress Note ---
Assessment and Plan - Patient Problems (1) Pulmonary embolus, right Current Visit: Yes Status: Acute Plan to address problem: Continue intravenous heparin start on warfarin A venous Doppler to rule out DVT as r/o source of pulmonary embolism (2) Paraparesis of both lower limbs Current Visit: Yes Status: Acute Plan to address problem: PT and OT consult This needs to be addressed as an outpatient once she stabilized on her pulmonary embolism (3) Hypertensive urgency Current Visit: Yes Status: Acute Plan to address problem: Isn't allergic to multiple antihypertensives mild bradycardia started on nifedipine Continue ARB Subjective Date of service: 09/13/16 Principal diagnosis: Acute Pulmonary Embolus; Uncontrolled HTN Interval history: Patient alert and oriented No apparent distress Complains of increased sensitivity in the left lower chest but denies any chest pain Objective - Constitutional Vitals: Vital Signs - 12hr 09/13/16 09/13/16 09/13/16 03:01 04:00 05:01 Temperature Pulse Rate 58 L 62 64 Respiratory 11 L 11 L 10 L Rate Respiratory Rate [Left Hip] Blood Pressure 184/94 160/76 170/89 O2 Sat by Pulse 96 93 94 Oximetry 09/13/16 09/13/16 09/13/16 06:01 07:00 07:55 Temperature 98.3 F Pulse Rate 59 L 59 L Respiratory 9 L 11 L Rate Respiratory Rate [Left Hip] Blood Pressure 171/80 167/90 O2 Sat by Pulse 95 95 Oximetry 09/13/16 09/13/16 09/13/16 08:00 08:01 09:01 Temperature Pulse Rate 60 61 Respiratory 14 13 Rate Respiratory Rate [Left Hip] Blood Pressure 210/113 210/113 O2 Sat by Pulse 99 96 99 Oximetry 09/13/16 09/13/16 09/13/16 09:37 09:39 10:00 Temperature Pulse Rate 66 66 Respiratory 12 Rate Respiratory 12 Rate [Left Hip] Blood Pressure 191/111 O2 Sat by Pulse Oximetry 09/13/16 09/13/16 09/13/16 10:01 11:01 12:00 Temperature 98.7 F Pulse Rate 60 67 Respiratory 16 16 Rate Respiratory Rate [Left Hip] Blood Pressure 191/111 187/104 O2 Sat by Pulse 98 96 Oximetry General appearance: Present: no acute distress - EENT Eyes: PERRL, EOM intact ENT: hearing intact, clear oral mucosa - Neck Neck: supple, normal ROM, no masses or JVD - Respiratory Respiratory effort: normal Respiratory: bilateral: CTA - Cardiovascular Rhythm: regular Heart Sounds: Present: S1 & S2 Extremities: No edema - Gastrointestinal General gastrointestinal: Present: soft, non-tender - Integumentary Integumentary: clear - Musculoskeletal Musculoskeletal: strength equal bilaterally - Neurologic Neurologic: CNII-XII intact - Labs CBC & Chem 7: 09/13/16 05:51 09/13/16 05:51 Labs: Abnormal lab results 09/12/16 09/13/16 09/13/16 Range/Units 19:58 05:51 05:51 [place] % (Auto) 9.1 H (0.0-7.3) % Heparin Anti-Xa Level 1.04 H (0.3-0.7) U.I./ml Creatinine 0.5 L (0.7-1.2) mg/dL Glucose 105 H (65-100) mg/dL Calcium 10.4 H (8.4-10.2) mg/dL 09/13/16 Range/Units 08:51 [place] % (Auto) (0.0-7.3) % Heparin Anti-Xa Level 0.27 L (0.3-0.7) U.I./ml Creatinine (0.7-1.2) mg/dL Glucose (65-100) mg/dL Calcium (8.4-10.2) mg/dL
[2016-09-13] MEDS: HEPARIN/ 0.45% NACL-25,000 UNIT/500 ML 25,000 UNIT/500 ML BAG IV SCH (15:15)
[2016-09-13] MEDS: IMDUR PO SCH ×2 (18:12→21:21)
[2016-09-13] MEDS: COUMADIN PO SCH (18:12)
[2016-09-14 05:23] LABS: Hematocrit 38.3 % (30.3-42.9); Hemoglobin 12.6 gm/dl (10.1-14.3)
[2016-09-14 05:30] LABS: INR 1.07 (0.87-1.13)
[2016-09-14 05:40] LABS: Anion Gap 14 mmol/L; Blood Urea Nitrogen 15 mg/dL (7-17); Calcium 10.2 mg/dL (8.4-10.2); Carbon Dioxide 28 mmol/L (22-30); Chloride 101.6 mmol/L (98-107); Glucose 142 mg/dL (65-100); Potassium 3.6 mmol/L (3.6-5.0); Sodium 140 mmol/L (137-145)
[2016-09-14] MEDS: MORPHINE IV PRN ×3 (07:40→21:57)
[2016-09-14] MEDS: IMDUR PO SCH ×2 (10:49→21:56)
[2016-09-14] MEDS: DIOVAN PO SCH ×2 (10:49→21:55)
[2016-09-14] MEDS: PROCARDIA XL PO SCH (10:49)
[2016-09-14] MEDS: CYMBALTA PO SCH (10:49)
[2016-09-14] MEDS: PEPCID PO SCH (10:49)
--- NOTE | 2016-09-14 11:50 | Progress Note ---
Assessment and Plan - Patient Problems (1) Acute pulmonary embolism Current Visit: Yes Status: Acute Qualifiers: Pulmonary embolism type: P Acute cor pulmonale presence: A Plan to address problem: - continue heparin IV - on coumadin at 7.5mg/day - no indication for IVC filter placement - prn oxygen therapy (2) Chest pain Current Visit: Yes Status: Acute Qualifiers: Chest pain type: unspecified Qualified Code(s): R07.9 - Chest pain, unspecified Plan to address problem: - resolved (3) Hypertensive urgency Current Visit: Yes Status: Acute Plan to address problem: - on diovan - other management per cardiology - avoid hydralazine (4) Paraparesis of both lower limbs Current Visit: Yes Status: Acute Plan to address problem: - PT/OT - hold on spinal surgery re: acute P.E. for now Subjective Date of service: 09/14/16 Principal diagnosis: Acute Pulmonary Embolus; Uncontrolled HTN Interval history: Seen and examined at bedside; 24 hour events reviewed; nursing and respiratory care staff consulted; no adverse overnight events reported to me; resting in bed ; feels better; denies any gross bleeding; denies acute chest pains or increased SOB Objective Vital Signs - 12hr 09/14/16 09/14/16 09/14/16 00:00 01:01 02:00 Temperature Pulse Rate 70 78 82 Pulse Rate [ Left Radial] Respiratory 12 12 12 Rate Blood Pressure 106/68 120/74 116/72 Blood Pressure [Left Arm] O2 Sat by Pulse 97 96 97 Oximetry 09/14/16 09/14/16 09/14/16 03:00 04:00 05:00 Temperature Pulse Rate 76 76 73 Pulse Rate [ Left Radial] Respiratory 12 12 12 Rate Blood Pressure 122/82 107/74 122/74 Blood Pressure [Left Arm] O2 Sat by Pulse 95 95 95 Oximetry 09/14/16 09/14/16 09/14/16 06:00 07:00 08:50 Temperature 98.1 F Pulse Rate 73 82 Pulse Rate [ 80 Left Radial] Respiratory 12 15 18 Rate Blood Pressure 132/73 130/88 Blood Pressure 138/87 [Left Arm] O2 Sat by Pulse 96 97 95 Oximetry 09/14/16 09:03 Temperature Pulse Rate 75 Pulse Rate [ Left Radial] Respiratory Rate Blood Pressure Blood Pressure [Left Arm] O2 Sat by Pulse Oximetry Constitutional: no acute distress Eyes: non-icteric ENT: oropharynx moist Neck: supple Effort: normal Ascultation: Bilateral: clear, diminished breath sounds Cardiovascular: regular rate and rhythm Gastrointestinal: normoactive bowel sounds, soft, non-tender, non-distended Integumentary: normal Extremities: no cyanosis, no edema, pulses normal, no ischemia or petechiae Neurologic: normal mental status, pupils equal and round, CN II-XII normal, other (lower extremity pain limitied weakness) Psychiatric: mood appropriate, affect normal CBC and BMP: 09/14/16 04:54 09/14/16 04:54 ABG, PT/INR, D-dimer: PT/INR, D-dimer PT 13.8 Sec. (12.2-14.9) 09/14/16 04:54 INR 1.07 (0.87-1.13) 09/14/16 04:54 D-Dimer 1320.93 ng/mlDDU (0-234) H 09/12/16 01:29 Abnormal lab findings: Abnormal Labs 09/12/16 09/13/16 09/13/16 19:58 05:51 05:51 [place] % (Auto) 9.1 H Heparin Anti-Xa Level 1.04 H Creatinine 0.5 L Glucose 105 H Calcium 10.4 H 09/13/16 09/14/16 08:51 04:54 [place] % (Auto) Heparin Anti-Xa Level 0.27 L Creatinine 0.3 L Glucose 142 H Calcium Chest x-ray: image reviewed
--- NOTE | 2016-09-14 14:22 | Progress Note ---
Assessment and Plan Acute Pulmonary embolism/ RLE DVT on IV heparin. initiated on warfarin Hypertension -controlled on procardia xl and diovan allergy to norvasc, hydralazine and hctz clonidine and coreg discontinued due to sinus bradycardia on her presenting ECG Hx of Sciatica EF 50-55% on echocardiogram Continue optimal BP management. Subjective Date of service: 09/14/16 Principal diagnosis: Acute Pulmonary Embolus; Uncontrolled HTN Interval history: Patient transferred from CCU to telemetry. Patient denies chest pain and shortness of breath. Objective Vital Signs Temp Pulse Pulse Resp BP BP Pulse Ox 09/14/16 11:30 98.3 F 92 H 18 169/93 97 09/14/16 09:03 75 09/14/16 08:50 98.1 F 80 18 138/87 95 09/14/16 07:00 82 15 130/88 97 09/14/16 06:00 73 12 132/73 96 09/14/16 05:00 73 12 122/74 95 09/14/16 04:00 76 12 107/74 95 09/14/16 03:00 76 12 122/82 95 09/14/16 02:00 82 12 116/72 97 09/14/16 01:01 78 12 120/74 96 09/14/16 00:00 70 12 106/68 97 09/13/16 23:17 75 10 L 122/71 97 09/13/16 23:00 69 11 L 122/71 96 09/13/16 22:00 67 12 122/69 97 09/13/16 21:21 77 133/71 09/13/16 21:20 77 133/71 09/13/16 21:00 81 15 133/71 96 09/13/16 20:00 73 16 128/63 95 09/13/16 19:00 72 16 143/82 96 09/13/16 18:12 70 183/95 09/13/16 18:00 77 14 169/142 97 09/13/16 17:00 61 12 182/98 98 09/13/16 16:01 64 25 H 187/94 98 09/13/16 16:00 98.6 F 09/13/16 15:00 59 L 12 214/106 97 - Physical Examination General: No Apparent Distress HEENT: Positive: PERRL Neck: Positive: trachea midline Cardiac: Positive: Reg Rate and Rhythm Lungs: Positive: Decreased Breath Sounds - Labs and Meds Coagulation 09/14/16 Range/Units 04:54 PT 13.8 (12.2-14.9) Sec. INR 1.07 (0.87-1.13) CBC 09/14/16 Range/Units 04:54 Hgb 12.6 (10.1-14.3) gm/dl Hct 38.3 (30.3-42.9) % Plt Count 196 (140-440) K/mm3 Comprehensive Metabolic Panel 09/14/16 Range/Units 04:54 Sodium 140 (137-145) mmol/L Potassium 3.6 (3.6-5.0) mmol/L Chloride 101.6 (98-107) mmol/L Carbon Dioxide 28 (22-30) mmol/L BUN 15 (7-17) mg/dL Creatinine 0.3 L (0.7-1.2) mg/dL Glucose 142 H (65-100) mg/dL Calcium 10.2 (8.4-10.2) mg/dL - EKG Sinus rhythms and dysrhythmias: sinus bradycardia
[2016-09-14] MEDS: COUMADIN PO SCH (17:32)
--- NOTE | 2016-09-14 17:36 | Vascular Lab Report ---
LOWER EXTREMITY VENOUS DUPLEX: REASON FOR EXAM: Acute pulmonary embolus. COMMENTS ON THE RIGHT: Deep venous thrombosis is noted in the posterior tibial and peroneal veins. The remaining veins visualized are freely compressible without evidence of internal echogenicity. Spontaneous and phasic flow is present proximally. COMMENTS ON THE LEFT: All veins visualized are freely compressible without evidence of internal echogenicity. Flow is spontaneous and phasic throughout. IMPRESSION: Deep venous thrombosis in the right lower extremity below knee
[2016-09-14] MEDS: TYLENOL PO PRN (18:14)
[2016-09-14] MEDS: ZOFRAN IV PRN (18:15)
[2016-09-14] MEDS: HEPARIN/ 0.45% NACL-25,000 UNIT/500 ML 25,000 UNIT/500 ML BAG IV SCH (21:53)
[2016-09-14] MEDS: SENOKOT PO PRN (21:55)
[2016-09-15 05:51] LABS: INR 1.25 (0.87-1.13)
[2016-09-15] MEDS: PEPCID PO SCH ×2 (08:53→09:17)
[2016-09-15] MEDS: PROCARDIA XL PO SCH ×2 (08:53→09:17)
[2016-09-15] MEDS: CYMBALTA PO SCH ×2 (08:54→09:17)
[2016-09-15] MEDS: TYLENOL PO PRN (08:54)
[2016-09-15] MEDS: DIOVAN PO SCH ×4 (08:55→22:00)
[2016-09-15] MEDS: IMDUR PO SCH ×4 (08:55→22:00)
[2016-09-15] MEDS: MILK OF MAGNESIA PO PRN ×2 (09:15→20:52)
[2016-09-15] MEDS: SENOKOT PO PRN ×2 (09:15→20:53)
--- NOTE | 2016-09-15 09:57 | Progress Note ---
Assessment and Plan Acute Pulmonary embolism/ RLE DVT on IV heparin. initiated on warfarin Hypertension -controlled on procardia xl and diovan allergy to norvasc, hydralazine and hctz clonidine and coreg discontinued due to sinus bradycardia on her presenting ECG Hx of Sciatica EF 50-55% on echocardiogram Continue optimal BP management. Conservative cardiac management. Subjective Date of service: 09/15/16 Principal diagnosis: Acute Pulmonary Embolus; Uncontrolled HTN Interval history: Patient resting in bed comfortably. Patient denies chest pain and shortness of breath. Objective Vital Signs Temp Pulse Pulse Pulse Pulse Resp BP 09/15/16 08:59 97.6 F 90 16 09/15/16 08:55 146/80 09/15/16 05:00 98.7 F 78 17 09/15/16 01:00 98.8 F 81 18 09/14/16 22:00 80 09/14/16 20:19 98.7 F 91 H 19 09/14/16 19:38 18 09/14/16 11:30 98.3 F 92 H 18 BP Pulse Ox 09/15/16 08:59 146/87 95 09/15/16 08:55 09/15/16 05:00 122/70 92 09/15/16 01:00 106/59 96 09/14/16 22:00 09/14/16 20:19 149/88 98 09/14/16 19:38 09/14/16 11:30 169/93 97 - Physical Examination General: No Apparent Distress HEENT: Positive: PERRL Neck: Positive: trachea midline Cardiac: Positive: Reg Rate and Rhythm Lungs: Positive: Decreased Breath Sounds - Labs and Meds Coagulation 09/15/16 Range/Units 04:29 PT 15.6 H (12.2-14.9) Sec. INR 1.25 H (0.87-1.13) - EKG Sinus rhythms and dysrhythmias: sinus bradycardia
--- NOTE | 2016-09-15 10:22 | Progress Note ---
Assessment and Plan - Patient Problems (1) History of DVT (deep vein thrombosis) Current Visit: Yes Status: Acute Plan to address problem: Patient currently on heparin and Coumadin (2) Hypertension Current Visit: Yes Status: Acute Qualifiers: Hypertension type: H Plan to address problem: Continue Procardia and valsartan (3) Acute pulmonary embolism Current Visit: Yes Status: Acute Qualifiers: Pulmonary embolism type: P Acute cor pulmonale presence: A Plan to address problem: Continue heparin and Coumadin until patient's INR is 2.0 History Interval history: Patient lying in bed with her daughter at the bedside state that she feels fine Hospitalist Physical - Constitutional Vitals: Temp Pulse Resp BP Pulse Ox 97.6 F 90 16 146/87 95 09/15/16 08:59 09/15/16 08:59 09/15/16 08:59 09/15/16 08:59 09/15/16 08:59 General appearance: Present: no acute distress - EENT Eyes: Present: PERRL, EOM intact ENT: hearing intact, clear oral mucosa - Neck Neck: Present: supple, normal ROM - Respiratory Respiratory effort: normal Respiratory: bilateral: CTA - Cardiovascular Rhythm: regular Heart Sounds: Present: S1 & S2 - Extremities Extremities: no ischemia, No edema - Abdominal General gastrointestinal: soft, non-tender, non-distended, normal bowel sounds - Psychiatric Psychiatric: appropriate mood/affect, depressed - Neurologic Neurologic: CNII-XII intact, moves all extremities Results - Labs CBC & Chem 7: 09/14/16 04:54 09/14/16 04:54 Labs: Laboratory Last Values WBC 5.4 K/mm3 (4.5-11.0) 09/13/16 05:51 RBC 4.37 M/mm3 (3.65-5.03) 09/13/16 05:51 Hgb 12.6 gm/dl (10.1-14.3) 09/14/16 04:54 Hct 38.3 % (30.3-42.9) 09/14/16 04:54 MCV 90 fl (79-97) 09/13/16 05:51 MCH 30 pg (28-32) 09/13/16 05:51 MCHC 33 % (30-34) 09/13/16 05:51 RDW 13.6 % (13.2-15.2) 09/13/16 05:51 Plt Count 196 K/mm3 (140-440) 09/14/16 04:54 Lymph % (Auto) 30.4 % (13.4-35.0) 09/13/16 05:51 [place] % (Auto) 9.1 % (0.0-7.3) H 09/13/16 05:51 Eos % (Auto) 3.6 % (0.0-4.3) 09/13/16 05:51 Baso % (Auto) 1.1 % (0.0-1.8) 09/13/16 05:51 Lymph # 1.6 K/mm3 (1.2-5.4) 09/13/16 05:51 [place] # 0.5 K/mm3 (0.0-0.8) 09/13/16 05:51 Eos # 0.2 K/mm3 (0.0-0.4) 09/13/16 05:51 Baso # 0.1 K/mm3 (0.0-0.1) 09/13/16 05:51 Seg Neutrophils % 55.8 % (40.0-70.0) 09/13/16 05:51 Seg Neutrophils # 3.0 K/mm3 (1.8-7.7) 09/13/16 05:51 PT 15.6 Sec. (12.2-14.9) H 09/15/16 04:29 INR 1.25 (0.87-1.13) H 09/15/16 04:29 APTT 26.9 Sec. (24.2-36.6) 09/12/16 01:29 D-Dimer 1320.93 ng/mlDDU (0-234) H 09/12/16 01:29 Heparin Anti-Xa Level 0.51 U.I./ml (0.3-0.7) 09/15/16 04:29 Sodium 140 mmol/L (137-145) 09/14/16 04:54 Potassium 3.6 mmol/L (3.6-5.0) 09/14/16 04:54 Chloride 101.6 mmol/L (98-107) 09/14/16 04:54 Carbon Dioxide 28 mmol/L (22-30) 09/14/16 04:54 Anion Gap 14 mmol/L 09/14/16 04:54 BUN 15 mg/dL (7-17) 09/14/16 04:54 Creatinine 0.3 mg/dL (0.7-1.2) L 09/14/16 04:54 Estimated GFR > 60 ml/min 09/14/16 04:54 BUN/Creatinine Ratio 50.00 % 09/14/16 04:54 Glucose 142 mg/dL (65-100) H 09/14/16 04:54 Calcium 10.2 mg/dL (8.4-10.2) 09/14/16 04:54 Total Bilirubin 0.3 mg/dL (0.1-1.2) 09/12/16 01:29 AST 21 units/L (5-40) 09/12/16 01:29 ALT 14 units/L (7-56) 09/12/16 01:29 Alkaline Phosphatase 98 units/L (35-129) 09/12/16 01:29 Total Creatine Kinase 100 units/L (30-135) 09/12/16 07:24 CK-MB (CK-2) 2.0 ng/mL (0.0-4.0) 09/12/16 07:24 CK-MB (CK-2) Rel Index 2.0 (0-4) 09/12/16 07:24 Troponin T < 0.010 ng/mL (0.00-0.029) 09/12/16 07:24 Total Protein 6.4 g/dL (6.3-8.2) 09/12/16 01:29 Albumin 4.1 g/dL (3.9-5) 09/12/16 01:29 Albumin/Globulin Ratio 1.8 % 09/12/16 01:29 Lipase 21 units/L (13-60) 09/12/16 01:29 Urine Color Yellow (Yellow) 09/12/16 07:23 Urine Turbidity Clear (Clear) 09/12/16 07:23 Urine pH 7.0 (5.0-7.0) 09/12/16 07:23 Urine Protein <15 mg/dl mg/dL (Negative) 09/12/16 07:23 Urine Glucose (UA) Neg mg/dL (Negative) 09/12/16 07:23 Urine Ketones Tr mg/dL (Negative) 09/12/16 07:23 Urine Blood Neg (Negative) 09/12/16 07:23 Urine Nitrite Neg (Negative) 09/12/16 07:23 Urine Bilirubin Neg (Negative) 09/12/16 07:23 Urine Urobilinogen < 2.0 mg/dL (<2.0) 09/12/16 07:23 Ur Leukocyte Esterase Sm (Negative) 09/12/16 07:23 Urine WBC (Auto) 3.0 /HPF (0.0-6.0) 09/12/16 07:23 Urine RBC (Auto) 9.0 /HPF (0.0-6.0) 09/12/16 07:23 U Epithel Cells (Auto) 3.0 /HPF (0-13.0) 09/12/16 07:23 Amorphous Crystals Few 09/12/16 07:23 Urine Mucus Few /HPF 09/12/16 07:23
--- NOTE | 2016-09-15 13:08 | Progress Note ---
Assessment and Plan - Patient Problems (1) Acute pulmonary embolism Current Visit: Yes Status: Acute Qualifiers: Pulmonary embolism type: P Acute cor pulmonale presence: A Plan to address problem: - continue heparin IV - on coumadin at 7.5mg/day - no indication for IVC filter placement - prn oxygen therapy - target INR 2.0 - 3.0 (2) Chest pain Current Visit: Yes Status: Acute Qualifiers: Chest pain type: unspecified Qualified Code(s): R07.9 - Chest pain, unspecified Plan to address problem: - resolved (3) Hypertensive urgency Current Visit: Yes Status: Acute Plan to address problem: - resolved - on diovan - other management per cardiology - avoid hydralazine (4) Paraparesis of both lower limbs Current Visit: Yes Status: Acute Plan to address problem: - PT/OT - hold on spinal surgery re: acute P.E. for now Subjective Date of service: 09/15/16 Principal diagnosis: Acute Pulmonary Embolus; Uncontrolled HTN Interval history: Seen and examined at bedside; 24 hour events reviewed; nursing and respiratory care staff consulted; no adverse overnight events reported to me; resting in bed ; feels better; denies acute chest pains or increased SOB; no gross bleeding Objective Vital Signs - 12hr 09/15/16 09/15/16 09/15/16 05:00 08:55 08:59 Temperature 98.7 F 97.6 F Pulse Rate Pulse Rate [ 90 Right Dorsalis Pedis] Pulse Rate [ 78 Right Radial] Respiratory 17 16 Rate Blood Pressure 146/80 Blood Pressure 122/70 146/87 [Left Arm] O2 Sat by Pulse 92 95 Oximetry 09/15/16 10:00 Temperature Pulse Rate 83 Pulse Rate [ Right Dorsalis Pedis] Pulse Rate [ Right Radial] Respiratory Rate Blood Pressure Blood Pressure [Left Arm] O2 Sat by Pulse Oximetry Constitutional: no acute distress Eyes: non-icteric ENT: oropharynx moist Neck: supple Effort: normal Ascultation: Bilateral: clear, diminished breath sounds Cardiovascular: regular rate and rhythm Gastrointestinal: normoactive bowel sounds, soft, non-tender, non-distended Integumentary: normal Extremities: no cyanosis, no edema, pulses normal, no ischemia or petechiae Neurologic: normal mental status, pupils equal and round, CN II-XII normal, other (lower extremity pain limitied weakness) Psychiatric: mood appropriate, affect normal CBC and BMP: 09/14/16 04:54 09/14/16 04:54 ABG, PT/INR, D-dimer: PT/INR, D-dimer PT 15.6 Sec. (12.2-14.9) H 09/15/16 04:29 INR 1.25 (0.87-1.13) H 09/15/16 04:29 D-Dimer 1320.93 ng/mlDDU (0-234) H 09/12/16 01:29 Abnormal lab findings: Abnormal Labs 09/12/16 09/13/16 09/13/16 19:58 05:51 05:51 [place] % (Auto) 9.1 H PT INR Heparin Anti-Xa Level 1.04 H Creatinine 0.5 L Glucose 105 H Calcium 10.4 H 09/13/16 09/14/16 09/15/16 08:51 04:54 04:29 [place] % (Auto) PT 15.6 H INR 1.25 H Heparin Anti-Xa Level 0.27 L Creatinine 0.3 L Glucose 142 H Calcium
[2016-09-15] MEDS: MORPHINE IV PRN ×2 (14:02→21:02)
[2016-09-15] MEDS: CLARITIN PO SCH (16:36)
[2016-09-15] MEDS: COUMADIN PO SCH (16:37)
[2016-09-16 03:47] LABS: Eosinophils % (Auto) 1.4 % (0.0-4.3); Hematocrit 39.1 % (30.3-42.9); Hemoglobin 12.7 gm/dl (10.1-14.3); Mean Corpuscular HGB Conc 33 % (30-34); Mean Corpuscular Hemoglobin 30 pg (28-32); Mean Corpuscular Volume 91 fl (79-97); Platelet Count 200 K/mm3 (140-440); Red Cell Distribution Width 13.6 % (13.2-15.2); White Blood Count 8.1 K/mm3 (4.5-11.0)
[2016-09-16 03:53] LABS: INR 1.52 (0.87-1.13)
[2016-09-16 03:58] LABS: Alanine Aminotransferase 35 units/L (7-56); Albumin 3.6 g/dL (3.9-5); Albumin/Globulin Ratio 1.4 %; Alkaline Phosphatase 90 units/L (35-129); Anion Gap 18 mmol/L; Bilirubin,Total 0.3 mg/dL (0.1-1.2); Blood Urea Nitrogen 11 mg/dL (7-17); Calcium 10.9 mg/dL (8.4-10.2); Carbon Dioxide 26 mmol/L (22-30); Chloride 100.1 mmol/L (98-107); Glucose 130 mg/dL (65-100); Potassium 3.9 mmol/L (3.6-5.0); Sodium 140 mmol/L (137-145); Total Protein 6.2 g/dL (6.3-8.2)
[2016-09-16] MEDS: HEPARIN/ 0.45% NACL-25,000 UNIT/500 ML 25,000 UNIT/500 ML BAG IV SCH (04:00)
[2016-09-16] MEDS: TYLENOL PO PRN ×3 (06:43→21:28)
[2016-09-16] MEDS: CLARITIN PO SCH (09:33)
[2016-09-16] MEDS: IMDUR PO SCH ×2 (09:33→21:25)
[2016-09-16] MEDS: DIOVAN PO SCH ×2 (09:33→21:25)
[2016-09-16] MEDS: PEPCID PO SCH (09:33)
[2016-09-16] MEDS: PROCARDIA XL PO SCH (09:33)
[2016-09-16] MEDS: CYMBALTA PO SCH (09:33)
--- NOTE | 2016-09-16 10:00 | XRay Report ---
LEFT RIBS, 3 VIEWS: History: pain. Routine views of the rib cage demonstrate normal mineralization with no significant contour abnormalities, fractures or destructive lesions. PA view of the chest demonstrates no underlying cardiopulmonary abnormalities, fluid or pneumothorax. IMPRESSION: Unremarkable left rib series.
--- NOTE | 2016-09-16 10:23 | Progress Note ---
Assessment and Plan - Patient Problems (1) History of DVT (deep vein thrombosis) Current Visit: Yes Status: Acute Plan to address problem: Patient currently on heparin and Coumadin (2) Hypertension Current Visit: Yes Status: Acute Qualifiers: Hypertension type: H Plan to address problem: Continue Procardia and valsartan (3) Acute pulmonary embolism Current Visit: Yes Status: Acute Qualifiers: Pulmonary embolism type: P Acute cor pulmonale presence: A Plan to address problem: Continue heparin and Coumadin until patient's INR is 2.0 History Interval history: Patient lying in bed with her daughter at the bedside state that she feels fine Hospitalist Physical - Constitutional Vitals: Temp Pulse Resp BP Pulse Ox 98.5 F 91 H 19 149/90 95 09/16/16 05:58 09/16/16 05:58 09/16/16 05:58 09/16/16 05:58 09/16/16 05:58 General appearance: Present: no acute distress - EENT Eyes: Present: PERRL, EOM intact ENT: hearing intact, clear oral mucosa - Neck Neck: Present: supple, normal ROM - Respiratory Respiratory effort: normal Respiratory: bilateral: CTA - Cardiovascular Rhythm: regular Heart Sounds: Present: S1 & S2 - Abdominal General gastrointestinal: soft, non-tender, non-distended, normal bowel sounds - Psychiatric Psychiatric: appropriate mood/affect, intact judgment & insight - Neurologic Neurologic: CNII-XII intact, moves all extremities Results - Labs CBC & Chem 7: 09/16/16 03:10 09/16/16 03:10 Labs: Laboratory Last Values WBC 8.1 K/mm3 (4.5-11.0) 09/16/16 03:10 RBC 4.30 M/mm3 (3.65-5.03) 09/16/16 03:10 Hgb 12.7 gm/dl (10.1-14.3) 09/16/16 03:10 Hct 39.1 % (30.3-42.9) 09/16/16 03:10 MCV 91 fl (79-97) 09/16/16 03:10 MCH 30 pg (28-32) 09/16/16 03:10 MCHC 33 % (30-34) 09/16/16 03:10 RDW 13.6 % (13.2-15.2) 09/16/16 03:10 Plt Count 200 K/mm3 (140-440) 09/16/16 03:10 Lymph % (Auto) 17.8 % (13.4-35.0) 09/16/16 03:10 [place] % (Auto) 9.7 % (0.0-7.3) H 09/16/16 03:10 Eos % (Auto) 1.4 % (0.0-4.3) 09/16/16 03:10 Baso % (Auto) 1.0 % (0.0-1.8) 09/16/16 03:10 Lymph # 1.4 K/mm3 (1.2-5.4) 09/16/16 03:10 [place] # 0.8 K/mm3 (0.0-0.8) 09/16/16 03:10 Eos # 0.1 K/mm3 (0.0-0.4) 09/16/16 03:10 Baso # 0.1 K/mm3 (0.0-0.1) 09/16/16 03:10 Seg Neutrophils % 70.1 % (40.0-70.0) H 09/16/16 03:10 Seg Neutrophils # 5.7 K/mm3 (1.8-7.7) 09/16/16 03:10 PT 18.3 Sec. (12.2-14.9) H 09/16/16 03:10 INR 1.52 (0.87-1.13) H 09/16/16 03:10 APTT 26.9 Sec. (24.2-36.6) 09/12/16 01:29 D-Dimer 1320.93 ng/mlDDU (0-234) H 09/12/16 01:29 Heparin Anti-Xa Level 0.50 U.I./ml (0.3-0.7) 09/16/16 03:10 Sodium 140 mmol/L (137-145) 09/16/16 03:10 Potassium 3.9 mmol/L (3.6-5.0) 09/16/16 03:10 Chloride 100.1 mmol/L (98-107) 09/16/16 03:10 Carbon Dioxide 26 mmol/L (22-30) 09/16/16 03:10 Anion Gap 18 mmol/L 09/16/16 03:10 BUN 11 mg/dL (7-17) 09/16/16 03:10 Creatinine 0.5 mg/dL (0.7-1.2) L D 09/16/16 03:10 Estimated GFR > 60 ml/min 09/16/16 03:10 BUN/Creatinine Ratio 22.00 % 09/16/16 03:10 Glucose 130 mg/dL (65-100) H 09/16/16 03:10 Calcium 10.9 mg/dL (8.4-10.2) H 09/16/16 03:10 Total Bilirubin 0.3 mg/dL (0.1-1.2) 09/16/16 03:10 AST 46 units/L (5-40) H 09/16/16 03:10 ALT 35 units/L (7-56) 09/16/16 03:10 Alkaline Phosphatase 90 units/L (35-129) 09/16/16 03:10 Total Creatine Kinase 100 units/L (30-135) 09/12/16 07:24 CK-MB (CK-2) 2.0 ng/mL (0.0-4.0) 09/12/16 07:24 CK-MB (CK-2) Rel Index 2.0 (0-4) 09/12/16 07:24 Troponin T < 0.010 ng/mL (0.00-0.029) 09/12/16 07:24 Total Protein 6.2 g/dL (6.3-8.2) L 09/16/16 03:10 Albumin 3.6 g/dL (3.9-5) L 09/16/16 03:10 Albumin/Globulin Ratio 1.4 % 09/16/16 03:10 Lipase 21 units/L (13-60) 09/12/16 01:29 Urine Color Yellow (Yellow) 09/12/16 07:23 Urine Turbidity Clear (Clear) 09/12/16 07:23 Urine pH 7.0 (5.0-7.0) 09/12/16 07:23 Urine Protein <15 mg/dl mg/dL (Negative) 09/12/16 07:23 Urine Glucose (UA) Neg mg/dL (Negative) 09/12/16 07:23 Urine Ketones Tr mg/dL (Negative) 09/12/16 07:23 Urine Blood Neg (Negative) 09/12/16 07:23 Urine Nitrite Neg (Negative) 09/12/16 07:23 Urine Bilirubin Neg (Negative) 09/12/16 07:23 Urine Urobilinogen < 2.0 mg/dL (<2.0) 09/12/16 07:23 Ur Leukocyte Esterase Sm (Negative) 09/12/16 07:23 Urine WBC (Auto) 3.0 /HPF (0.0-6.0) 09/12/16 07:23 Urine RBC (Auto) 9.0 /HPF (0.0-6.0) 09/12/16 07:23 U Epithel Cells (Auto) 3.0 /HPF (0-13.0) 09/12/16 07:23 Amorphous Crystals Few 09/12/16 07:23 Urine Mucus Few /HPF 09/12/16 07:23
[2016-09-16] MEDS: SENOKOT PO PRN (14:39)
[2016-09-16] MEDS: ZOFRAN IV PRN ×2 (14:39→21:56)
--- NOTE | 2016-09-16 15:19 | Progress Note ---
Assessment and Plan Patient alert, awake. No acute respiratory distress. Patient resting on room air O2 satuaration 94%.Complaining slight chest discomfort. Patient is on I/V Heparin. Recommend to place her on 2 litres O2. - Patient Problems (1) Acute pulmonary embolism Current Visit: Yes Status: Acute Qualifiers: Pulmonary embolism type: P Acute cor pulmonale presence: A Plan to address problem: Patient is on I/V Heparin. Heparin Anti Xa level .5. (2) Chest pain Current Visit: Yes Status: Acute Qualifiers: Chest pain type: unspecified Qualified Code(s): R07.9 - Chest pain, unspecified Plan to address problem: Patient complaining slight chest discomfort. No acute distress. (3) History of DVT (deep vein thrombosis) Current Visit: Yes Status: Acute Plan to address problem: Patients venous doppler studies reported DVT lright lower extremity. Patient is on I/V Heparin. (4) Hypertension Current Visit: Yes Status: Acute Qualifiers: Hypertension type: H Plan to address problem: Management as per primary care. (5) Paraparesis of both lower limbs Current Visit: Yes Status: Acute Plan to address problem: Management as per primary care. Recommend to consult neurology. Subjective Date of service: 09/16/16 Principal diagnosis: Acute Pulmonary Embolus; Uncontrolled HTN Interval history: Patient alert, awake. No acute respiratory distress. Patient resting on room air O2 satuaration 94%.Complaining slight chest discomfort. Patient is on I/V Heparin. Recommend to place her on 2 litres O2. Objective Vital Signs - 12hr 09/16/16 09/16/16 09/16/16 05:58 09:05 10:00 Temperature 98.5 F 98.7 F Pulse Rate 81 Pulse Rate [ 80 Left Radial] Pulse Rate [ 91 H Right Radial] Respiratory 19 18 Rate Blood Pressure 149/90 119/73 [Left Arm] O2 Sat by Pulse 95 94 Oximetry Constitutional: no acute distress Eyes: non-icteric ENT: oropharynx moist Neck: supple Effort: normal Ascultation: Bilateral: diminished breath sounds Cardiovascular: regular rate and rhythm Gastrointestinal: normoactive bowel sounds, soft, non-tender, non-distended Integumentary: normal Extremities: no cyanosis, no edema, pulses normal, no ischemia or petechiae Neurologic: normal mental status, pupils equal and round, CN II-XII normal, other (lower extremity pain limitied weakness) Psychiatric: mood appropriate, affect normal CBC and BMP: 09/16/16 03:10 09/16/16 03:10 ABG, PT/INR, D-dimer: PT/INR, D-dimer PT 18.3 Sec. (12.2-14.9) H 09/16/16 03:10 INR 1.52 (0.87-1.13) H 09/16/16 03:10 D-Dimer 1320.93 ng/mlDDU (0-234) H 09/12/16 01:29 Abnormal lab findings: Abnormal Labs 09/12/16 09/13/16 09/13/16 19:58 05:51 05:51 [place] % (Auto) 9.1 H Seg Neutrophils % PT INR Heparin Anti-Xa Level 1.04 H Creatinine 0.5 L Glucose 105 H Calcium 10.4 H AST Total Protein Albumin 09/13/16 09/14/16 09/15/16 08:51 04:54 04:29 [place] % (Auto) Seg Neutrophils % PT 15.6 H INR 1.25 H Heparin Anti-Xa Level 0.27 L Creatinine 0.3 L Glucose 142 H Calcium AST Total Protein Albumin 09/16/16 09/16/16 09/16/16 03:10 03:10 03:10 [place] % (Auto) 9.7 H Seg Neutrophils % 70.1 H PT 18.3 H INR 1.52 H Heparin Anti-Xa Level Creatinine 0.5 L D Glucose 130 H Calcium 10.9 H AST 46 H Total Protein 6.2 L Albumin 3.[address] scan - chest: report reviewed (Right sided pulmonary emboli.) Additional Studies: Venous doppler studies of legs reported DVT right leg.
[2016-09-16] MEDS: COUMADIN PO SCH (18:09)
[2016-09-16] MEDS: MORPHINE IV PRN (21:36)
[2016-09-17 04:07] LABS: Eosinophils % (Auto) 4.1 % (0.0-4.3); Hematocrit 38.9 % (30.3-42.9); Hemoglobin 12.7 gm/dl (10.1-14.3); Mean Corpuscular HGB Conc 33 % (30-34); Mean Corpuscular Hemoglobin 30 pg (28-32); Mean Corpuscular Volume 91 fl (79-97); Platelet Count 191 K/mm3 (140-440); Red Cell Distribution Width 13.8 % (13.2-15.2); White Blood Count 6.9 K/mm3 (4.5-11.0)
[2016-09-17 04:18] LABS: INR 1.75 (0.87-1.13)
[2016-09-17 04:26] LABS: Alanine Aminotransferase 39 units/L (7-56); Albumin 3.6 g/dL (3.9-5); Albumin/Globulin Ratio 1.5 %; Alkaline Phosphatase 82 units/L (35-129); Anion Gap 15 mmol/L; BUN/Creatinine Ratio 18.33; Bilirubin,Total 0.3 mg/dL (0.1-1.2); Blood Urea Nitrogen 11 mg/dL (7-17); Calcium 10.8 mg/dL (8.4-10.2); Carbon Dioxide 29 mmol/L (22-30); Chloride 100.3 mmol/L (98-107); Glucose 113 mg/dL (65-100); Potassium 3.8 mmol/L (3.6-5.0); Sodium 140 mmol/L (137-145)
--- NOTE | 2016-09-17 07:51 | Progress Note ---
Assessment and Plan - Patient Problems (1) History of DVT (deep vein thrombosis) Current Visit: Yes Status: Acute (2) Hypertension Current Visit: Yes Status: Acute Qualifiers: Hypertension type: H Plan to address problem: Continue Procardia and valsartan (3) Acute pulmonary embolism Current Visit: Yes Status: Acute Qualifiers: Pulmonary embolism type: P Acute cor pulmonale presence: A Plan to address problem: Continue IV heparin and Coumadin until patient's INR is 2.0 (4) Dvt femoral (deep venous thrombosis) Current Visit: Yes Status: Acute Qualifiers: Laterality: L Chronicity: C Plan to address problem: Doppler ultrasound shows right lower extremity DVT. Continue IV heparin and Coumadin until INR is 2.0. INR today is 1.75. Anticipate discharge tomorrow (5) Paraparesis of both lower limbs Current Visit: Yes Status: Acute Plan to address problem: Patient state that she has an extensive history of lumbar disease prior to coming to the hospital. Patient state that she is being managed by orthopedic doctor as an outpatient. She has had multiple injections in her back. Patient state that she gets around in a wheelchair. This is a chronic issue that we'll be managed by her outpatient spine doctor History Interval history: Patient lying in bed. She states that she feels fine Hospitalist Physical - Constitutional Vitals: Temp Pulse Resp BP Pulse Ox 98.2 F 20 L 20 110/68 98 09/17/16 05:02 09/17/16 05:02 09/17/16 05:02 09/17/16 05:02 09/17/16 05:02 General appearance: Present: no acute distress - EENT Eyes: Present: PERRL, EOM intact ENT: hearing intact, clear oral mucosa - Neck Neck: Present: supple, normal ROM - Respiratory Respiratory effort: normal Respiratory: bilateral: CTA - Cardiovascular Rhythm: regular Heart Sounds: Present: S1 & S2 - Abdominal General gastrointestinal: soft, non-tender, non-distended, normal bowel sounds - Psychiatric Psychiatric: appropriate mood/affect, intact judgment & insight - Neurologic Neurologic: moves all extremities Results - Labs CBC & Chem 7: 09/17/16 03:31 09/17/16 03:31 Labs: Laboratory Last Values WBC 6.9 K/mm3 (4.5-11.0) 09/17/16 03:31 RBC 4.30 M/mm3 (3.65-5.03) 09/17/16 03:31 Hgb 12.7 gm/dl (10.1-14.3) 09/17/16 03:31 Hct 38.9 % (30.3-42.9) 09/17/16 03:31 MCV 91 fl (79-97) 09/17/16 03:31 MCH 30 pg (28-32) 09/17/16 03:31 MCHC 33 % (30-34) 09/17/16 03:31 RDW 13.8 % (13.2-15.2) 09/17/16 03:31 Plt Count 191 K/mm3 (140-440) 09/17/16 03:31 Lymph % (Auto) 27.8 % (13.4-35.0) 09/17/16 03:31 [place] % (Auto) 10.0 % (0.0-7.3) H 09/17/16 03:31 Eos % (Auto) 4.1 % (0.0-4.3) 09/17/16 03:31 Baso % (Auto) 1.0 % (0.0-1.8) 09/17/16 03:31 Lymph # 1.9 K/mm3 (1.2-5.4) 09/17/16 03:31 [place] # 0.7 K/mm3 (0.0-0.8) 09/17/16 03:31 Eos # 0.3 K/mm3 (0.0-0.4) 09/17/16 03:31 Baso # 0.1 K/mm3 (0.0-0.1) 09/17/16 03:31 Seg Neutrophils % 57.1 % (40.0-70.0) 09/17/16 03:31 Seg Neutrophils # 3.9 K/mm3 (1.8-7.7) 09/17/16 03:31 PT 20.4 Sec. (12.2-14.9) H 09/17/16 03:31 INR 1.75 (0.87-1.13) H 09/17/16 03:31 APTT 26.9 Sec. (24.2-36.6) 09/12/16 01:29 D-Dimer 1320.93 ng/mlDDU (0-234) H 09/12/16 01:29 Heparin Anti-Xa Level 0.50 U.I./ml (0.3-0.7) 09/17/16 03:31 Sodium 140 mmol/L (137-145) 09/17/16 03:31 Potassium 3.8 mmol/L (3.6-5.0) 09/17/16 03:31 Chloride 100.3 mmol/L (98-107) 09/17/16 03:31 Carbon Dioxide 29 mmol/L (22-30) 09/17/16 03:31 Anion Gap 15 mmol/L 09/17/16 03:31 BUN 11 mg/dL (7-17) 09/17/16 03:31 Creatinine 0.6 mg/dL (0.7-1.2) L 09/17/16 03:31 Estimated GFR > 60 ml/min 09/17/16 03:31 BUN/Creatinine Ratio 18.33 % 09/17/16 03:31 Glucose 113 mg/dL (65-100) H 09/17/16 03:31 Calcium 10.8 mg/dL (8.4-10.2) H 09/17/16 03:31 Total Bilirubin 0.3 mg/dL (0.1-1.2) 09/17/16 03:31 AST 43 units/L (5-40) H 09/17/16 03:31 ALT 39 units/L (7-56) 09/17/16 03:31 Alkaline Phosphatase 82 units/L (35-129) 09/17/16 03:31 Total Creatine Kinase 100 units/L (30-135) 09/12/16 07:24 CK-MB (CK-2) 2.0 ng/mL (0.0-4.0) 09/12/16 07:24 CK-MB (CK-2) Rel Index 2.0 (0-4) 09/12/16 07:24 Troponin T < 0.010 ng/mL (0.00-0.029) 09/12/16 07:24 Total Protein 6.0 g/dL (6.3-8.2) L 09/17/16 03:31 Albumin 3.6 g/dL (3.9-5) L 09/17/16 03:31 Albumin/Globulin Ratio 1.5 % 09/17/16 03:31 Lipase 21 units/L (13-60) 09/12/16 01:29 Urine Color Yellow (Yellow) 09/12/16 07:23 Urine Turbidity Clear (Clear) 09/12/16 07:23 Urine pH 7.0 (5.0-7.0) 09/12/16 07:23 Urine Protein <15 mg/dl mg/dL (Negative) 09/12/16 07:23 Urine Glucose (UA) Neg mg/dL (Negative) 09/12/16 07:23 Urine Ketones Tr mg/dL (Negative) 09/12/16 07:23 Urine Blood Neg (Negative) 09/12/16 07:23 Urine Nitrite Neg (Negative) 09/12/16 07:23 Urine Bilirubin Neg (Negative) 09/12/16 07:23 Urine Urobilinogen < 2.0 mg/dL (<2.0) 09/12/16 07:23 Ur Leukocyte Esterase Sm (Negative) 09/12/16 07:23 Urine WBC (Auto) 3.0 /HPF (0.0-6.0) 09/12/16 07:23 Urine RBC (Auto) 9.0 /HPF (0.0-6.0) 09/12/16 07:23 U Epithel Cells (Auto) 3.0 /HPF (0-13.0) 09/12/16 07:23 Amorphous Crystals Few 09/12/16 07:23 Urine Mucus Few /HPF 09/12/16 07:23
[2016-09-17] MEDS: IMDUR PO SCH ×2 (10:49→21:47)
[2016-09-17] MEDS: DIOVAN PO SCH ×2 (10:49→21:47)
[2016-09-17] MEDS: CYMBALTA PO SCH (10:49)
[2016-09-17] MEDS: PEPCID PO SCH (10:49)
[2016-09-17] MEDS: CLARITIN PO SCH (10:49)
[2016-09-17] MEDS: PROCARDIA XL PO SCH (10:49)
[2016-09-17] MEDS: SENOKOT PO PRN (10:56)
[2016-09-17] MEDS: MILK OF MAGNESIA PO PRN (10:56)
[2016-09-17] MEDS: HEPARIN/ 0.45% NACL-25,000 UNIT/500 ML 25,000 UNIT/500 ML BAG IV SCH (14:07)
[2016-09-17] MEDS: MORPHINE IV PRN (15:36)
[2016-09-17] MEDS: COUMADIN PO SCH (18:07)
--- NOTE | 2016-09-17 19:28 | Progress Note ---
Assessment and Plan Patient alert, awake. No acute respiratory distress. Patient resting on room air O2 satuaration 93%. Patient is on I/V Heparin and po coumadin. Recommend to place her on 2 litres O2. - Patient Problems (1) Acute pulmonary embolism Current Visit: Yes Status: Acute Qualifiers: Pulmonary embolism type: P Acute cor pulmonale presence: A Plan to address problem: Patient is on I/V Heparin and po coumadin. (2) Chest pain Current Visit: Yes Status: Acute Qualifiers: Chest pain type: unspecified Qualified Code(s): R07.9 - Chest pain, unspecified Plan to address problem: No complaint of chest pain today. (3) History of DVT (deep vein thrombosis) Current Visit: Yes Status: Acute Plan to address problem: Patients venous doppler studies reported DVT lright lower extremity. Patient is on I/V Heparin and coumadin. (4) Hypertension Current Visit: Yes Status: Acute Qualifiers: Hypertension type: H Plan to address problem: Management as per primary care. (5) Paraparesis of both lower limbs Current Visit: Yes Status: Acute Plan to address problem: Management as per primary care. Recommend to consult neurology. Subjective Date of service: 09/17/16 Principal diagnosis: Acute Pulmonary Embolus; Uncontrolled HTN Interval history: Patient alert, awake. No acute respiratory distress. Patient resting on room air O2 satuaration 93% Patient is on I/V Heparin and po coumadin. Recommend to place her on 2 litres O2. Objective Vital Signs - 12hr 09/17/16 09/17/16 09/17/16 08:37 10:00 12:25 Temperature 99.2 F 99.3 F Pulse Rate Pulse Rate [ 74 74 Left Radial] Respiratory 18 18 Rate Blood Pressure 153/84 164/97 [Left Arm] O2 Sat by Pulse 94 96 95 Oximetry 09/17/16 09/17/16 09/17/16 13:18 16:28 17:35 Temperature 98.8 F Pulse Rate 70 Pulse Rate [ 87 80 Left Radial] Respiratory 18 16 Rate Blood Pressure 173/76 143/66 [Left Arm] O2 Sat by Pulse 97 93 Oximetry Constitutional: no acute distress Eyes: non-icteric ENT: oropharynx moist Neck: supple Effort: normal Ascultation: Bilateral: clear Cardiovascular: regular rate and rhythm Gastrointestinal: normoactive bowel sounds, soft, non-tender, non-distended Integumentary: normal Extremities: no cyanosis, no edema, pulses normal, no ischemia or petechiae Neurologic: normal mental status, pupils equal and round, CN II-XII normal, other (lower extremity pain limitied weakness) Psychiatric: mood appropriate, affect normal CBC and BMP: 09/17/16 03:31 09/17/16 03:31 ABG, PT/INR, D-dimer: PT/INR, D-dimer PT 20.4 Sec. (12.2-14.9) H 09/17/16 03:31 INR 1.75 (0.87-1.13) H 09/17/16 03:31 D-Dimer 1320.93 ng/mlDDU (0-234) H 09/12/16 01:29 Abnormal lab findings: Abnormal Labs 09/12/16 09/13/16 09/13/16 19:58 05:51 05:51 Cecil % (Auto) 9.1 H Seg Neutrophils % PT INR Heparin Anti-Xa Level 1.04 H Creatinine 0.5 L Glucose 105 H Calcium 10.4 H AST Total Protein Albumin 09/13/16 09/14/16 09/15/16 08:51 04:54 04:29 Cecil % (Auto) Seg Neutrophils % PT 15.6 H INR 1.25 H Heparin Anti-Xa Level 0.27 L Creatinine 0.3 L Glucose 142 H Calcium AST Total Protein Albumin 09/16/16 09/16/16 09/16/16 03:10 03:10 03:10 Cecil % (Auto) 9.7 H Seg Neutrophils % 70.1 H PT 18.3 H INR 1.52 H Heparin Anti-Xa Level Creatinine 0.5 L D Glucose 130 H Calcium 10.9 H AST 46 H Total Protein 6.2 L Albumin 3.6 L 09/17/16 09/17/16 09/17/16 03:31 03:31 03:31 Cecil % (Auto) 10.0 H Seg Neutrophils % PT 20.4 H INR 1.75 H Heparin Anti-Xa Level Creatinine 0.6 L Glucose 113 H Calcium 10.8 H AST 43 H Total Protein 6.0 L Albumin 3.6 L
--- NOTE | 2016-09-18 07:26 | Vascular Lab Report ---
CAROTID DUPLEX STUDY: RIGHT PSVEDV CCA PROX:73146 CCA DIST: 6622 ICA PROX: 5218 ICA MID: 7933 ICA DIST: 8333 ECA: 62 VERT: 47 14 LEFT PSVEDV CCA PROX: 6116 CCA DIST: 6018 ICA PROX: 4116 ICA MID: 8037 ICA DIST: 9737 ECA: 56 VERT: 46 15 REASON FOR EXAM: Carotid artery stenosis /abnormal carotid pulse. COMMENTS ON THE RIGHT: Doppler frequency analysis is consistent with 16 to 49 percent diameter reduction of the internal carotid artery. Minimal amount of plaque is seen. The common carotid artery is patent. The external carotid artery is patent. The vertebral artery has antegrade flow. COMMENTS ON THE LEFT: Doppler frequency analysis is consistent with 16 to 49 percent diameter reduction of the internal carotid artery. Minimal amount of plaque is seen. The common carotid artery is patent. The external carotid artery is patent. The vertebral artery has antegrade flow. IMPRESSION: Less than 50% diameter reduction in the internal carotid arteries bilaterally. Consider repeat carotid artery duplex in 12 months.
[2016-09-18 07:53] LABS: INR 2.07 (0.87-1.13)
[2016-09-18 07:58] LABS: Basophils % (Auto) 1.1 % (0.0-1.8); Eosinophils % (Auto) 2.4 % (0.0-4.3); Hematocrit 40.2 % (30.3-42.9); Mean Corpuscular HGB Conc 33 % (30-34); Mean Corpuscular Hemoglobin 29 pg (28-32); Mean Corpuscular Volume 91 fl (79-97); Platelet Count 202 K/mm3 (140-440); Red Blood Count 4.44 M/mm3 (3.65-5.03); Red Cell Distribution Width 13.8 % (13.2-15.2); White Blood Count 8.9 K/mm3 (4.5-11.0)
[2016-09-18 08:18] LABS: Alanine Aminotransferase 41 units/L (7-56); Albumin 3.6 g/dL (3.9-5); Albumin/Globulin Ratio 1.4 %; Alkaline Phosphatase 99 units/L (35-129); Anion Gap 17 mmol/L; BUN/Creatinine Ratio 18.33; Bilirubin,Total 0.3 mg/dL (0.1-1.2); Blood Urea Nitrogen 11 mg/dL (7-17); Calcium 10.8 mg/dL (8.4-10.2); Carbon Dioxide 28 mmol/L (22-30); Chloride 100.6 mmol/L (98-107); Glucose 102 mg/dL (65-100); Sodium 142 mmol/L (137-145); Total Protein 6.2 g/dL (6.3-8.2)
--- NOTE | 2016-09-18 09:04 | Discharge Summary ---
Providers - Providers Date of Admission: 09/12/16 09:30 Date of discharge: 09/18/16 Attending physician: MARCO NG MD 09/12/16 09:39 Physical Therapy Evaluation and Treat [CONS] Routine Comment: Reason For Exam: weakness 09/12/16 10:41 Consult to Physician [CONS] Stat Consulting Provider: CATHY MONTEZ Reason For Exam: CCU for PE Place consult to:: Ophelia Notified:: Floor to consult Primary care physician: CHOCOLATE MOLDER Hospitalization Reason for admission: shortness of breath Condition: Stable Hospital course: 65-year-old female with history of hypertension chronic lower back pain and apparently C-spine disc disease with bilateral lower extremity weakness, basically wheelchair bound for more than 2 months presents to the emergency room with above complaint and was found to have an acute right lower lobe subsegmental pulmonary embolism on CTA of the chest and she is admitted for further management. He says she had a fall in the bathroom 2 weeks ago and since then she has been having pain in the left lower chest and under the left breast. She says she was advised to have surgery on her C-spine is considering it at [place] when she had a fall 2 weeks ago and has not rescheduled her appointment. Patient was started on empiric treatment for pulmonary embolism. Today her Coumadin level INR is 2.0 she is stable for discharge. I have discussed Coumadin management with the patient in detail. She verbalizes understanding that she'll be going home with home health. Her physician for continued monitoring of the INR. Discharge diagnosis * Acute Pulmonary embolism * RLE DVT * Hypertension * Sinus bradycardia * Paraparesis of both lower limbs * Atypical chest pain secondary to pulmonary embolism * Hx of Sciatica Disposition: DC/TX HOME UNDER HOME HEALTH Time spent for discharge: 35 MINS Core Measure Documentation - Palliative Care Palliative Care/ Comfort Measures: Not Applicable - Core Measures Any of the following diagnoses?: DVT/PE - VTE Discharge Requirements Deep Vein Thrombosis/Pulmonary Embolism Present on Admission: Yes Has pt received <5 days of overlap therapy or INR<2.0: Yes Anticoagulant overlap therapy prescribed at discharge: Yes Exam - Physical Exam Narrative exam: VITAL SIGNS: Reviewed. GENERAL: The patient appeared well nourished and normally developed. Vital signs as documented. HEAD: No signs of head trauma. EYES: Pupils are equal. Extraocular motions intact. EARS: Hearing grossly intact. MOUTH: Oropharynx is normal. NECK: No adenopathy, no JVD. CHEST: Chest with clear breath sounds bilaterally. No wheezes, rales, or rhonchi. CARDIAC: Regular rate and rhythm. S1 and S2, without murmurs, gallops, or rubs. VASCULAR: No Edema. Peripheral pulses normal and equal in all extremities. ABDOMEN: Soft, without detectable tenderness. No sign of distention. No rebound or guarding, and no masses palpated. Bowel Sounds normal. MUSCULOSKELETAL: PARAPARESIS- Wheel chair bound NEUROLOGIC EXAM: Alert and oriented x 3. No focal sensory or strength deficits. Speech normal. Follows commands. PSYCHIATRIC: Mood normal. SKIN: No rash or lesions. - Constitutional Vitals: Temp Pulse Resp BP Pulse Ox 98.4 F 66 18 139/92 94 09/18/16 07:55 09/18/16 07:55 09/18/16 07:55 09/18/16 07:55 09/18/16 05:17 Plan Activity: advance as tolerated, fall precautions Diet: low fat Special Instructions: record daily BP diary, other (INR check in 2 days at PCP office) Follow up with: PRIMARY MD ERNIE [Primary Care Provider] - 3-5 Days CATHY MONTEZ MD [Staff Physician] - 7 Days ZEYNEP COFFMAN MD [Staff Physician] - 7 Days Forms: Warfarin Discharge Instruction Prescriptions: Warfarin [Coumadin] 7.5 mg PO DAILY@1700 #30 tablet
[2016-09-18] MEDS: IMDUR PO SCH (10:30)
[2016-09-18] MEDS: CLARITIN PO SCH (10:30)
[2016-09-18] MEDS: PEPCID PO SCH (10:30)
[2016-09-18] MEDS: DIOVAN PO SCH (10:31)
[2016-09-18] MEDS: CYMBALTA PO SCH (10:32)
[2016-09-18] MEDS: MORPHINE IV PRN (10:32)
[2016-09-18 10:36] VITALS: BP 139/72
[2016-09-18] MEDS: PROCARDIA XL PO SCH (11:16)
--- NOTE | 2016-09-18 14:33 | Query- Chest Pain ---
Darion Schrader____Alban Date: 09/18/2016 Electric Motor Control Assembler/CDS:____Ángel julio Phone#: [phone] Exercise your independent professional judgment when responding to query. Questions asked do not imply a particular answer is desired or expected. We greatly appreciate your clarification on this issue. Clinical Documentation States: 66 year old female was admitted on 09/12/16. The H&P states that the patient present with shortness of breath and left lower chest pain for 1 week. The Patient was diagnosed with paraparesis of both lower limbs. The progress note (09/17/16) states "chest pain: acute; Acute pulmonary embolism " Clinical Findings Show: IV heparin was given Please document the etiology of Chest Pain: [ ] Myocardial Infarction [ ] Pneumonia [ ] Mediastinitis [ ] Costochondritis [ X] Pulmonary Embolism [ ] Coronary Artery Disease [ ] GERD [ ] Other: [ ] Comment/Explanation: Present on Admission: [X ] Yes (Y) [ ] Clinically undeterminable (W) [ ] No(N) Please document response in your Progress Notes and/or Discharge Summary and indicate if the condition was present on admission. INDIRA
== END 2016-09-18 14:29 | disposition home health service (06) | DRG 176 ==
LOC: ED 23:22 → CC1 09-12 09:30 → 4A 09-14 08:51
PROVIDERS: ADMIT Internal Medicine; ATTEND Internal Medicine
DX: I26.99 Other pulmonary embolism without acute cor pulmonale (principal); G82.20 Paraplegia, unspecified; J98.11 Atelectasis; I82.411 Acute embolism and thrombosis of right femoral vein; I16.0 Hypertensive urgency; I10 Essential (primary) hypertension; G89.29 Other chronic pain; K21.9 Gastro-esophageal reflux disease without esophagitis; G43.909 Migraine, unspecified, not intractable, without status migrainosus; M54.30 Sciatica, unspecified side; R00.1 Bradycardia, unspecified; Z83.3 Family history of diabetes mellitus; Z88.2 Allergy status to sulfonamides; Z98.51 Tubal ligation status; Z98.890 Other specified postprocedural states; Z88.8 Allergy status to other drugs, medicaments and biological substances
CPT/HCPCS: 36415; 71275; 74022; 80048; 80053; 81001; 82550; 82553; 83690; 84484; 85014; 85018; 85025; 85049; 85379; 85520; 85610; 85730; 93005; 93010; 93306; 93970; 96374; 96375; G8978-GP; G8979-GP; J1644; J2270; J2405; Q9967

== ENCOUNTER 2017-06-13 13:23 | Inpatient (IN) | payer MEDICARE ==
[2017-06-13 14:46] LABS: Basophils % (Auto) 0.6 % (0.0-1.8); Hematocrit 43.5 % (30.3-42.9); Hemoglobin 14.4 gm/dl (10.1-14.3); Mean Corpuscular HGB Conc 33 % (30-34); Mean Corpuscular Hemoglobin 29 pg (28-32); Mean Corpuscular Volume 89 fl (79-97); Platelet Count 279 K/mm3 (140-440); Red Blood Count 4.92 M/mm3 (3.65-5.03); Red Cell Distribution Width 14.2 % (13.2-15.2); White Blood Count 11.1 K/mm3 (4.5-11.0)
[2017-06-13 15:01] LABS: Anion Gap 22 mmol/L; BUN/Creatinine Ratio 23; Blood Urea Nitrogen 9 mg/dL (7-17); Calcium 11.6 mg/dL (8.4-10.2); Carbon Dioxide 25 mmol/L (22-30); Chloride 92.8 mmol/L (98-107); Glucose 182 mg/dL (65-100); Potassium 3.6 mmol/L (3.6-5.0); Sodium 136 mmol/L (137-145)
[2017-06-13] MEDS ORDERED: CATAPRES PO ONE (18:23)
[2017-06-13] MEDS ORDERED: ZOFRAN IV ONE (18:23)
[2017-06-13] MEDS ORDERED: SUBLIMAZE IV ONE (18:39)
--- NOTE | 2017-06-13 18:48 | Emergency Department Report ---
HPI - General Chief Complaint: Chest Pain Time Seen by Provider: 06/13/17 18:16 - HPI HPI: Room 6 The patient is a 67-year-old female presenting with a chief complaint of chest pain and headache. The patient states yesterday she slipped and fell backwards striking her head on the steps. The patient prehospital had a CAT scan of the head performed which she was told was negative. The patient states last night she continued to have a worsening headache associated with nausea vomiting in addition to substernal chest pain. Patient describes chest pain is pushing and constant in nature. Patient denies shortness of breath but does admit to diaphoresis with her chest pain. The patient currently gives her chest pain score of 7/10 and her headache a score of 10/10. The patient states she's never had a stress test or cardiac catheterization Location: Chest, head Duration: Constant since last night Quality: Pain Severity: 7-10/10 Modifying factors: [see above] Context: [see above] Mode of transportation: [not driving] ED Past Medical Hx - Past Medical History Hx Hypertension: Yes Hx Headaches / Migraines: Yes - Surgical History Past Surgical History?: Yes Additional Surgical History: myomectomy tubal ligation. Spinal surgery in March/April of 2017 - Family History Family history: no significant - Social History Smoking Status: Never Smoker Substance Use Type: None - Medications Home Medications: Home Medications Medication Instructions Recorded Confirmed Last Taken Type Lisinopril [Zestril TAB] 40 mg PO QDAY 09/10/13 06/13/17 09/10/13 08:00 History Carvedilol [Coreg] 12.5 mg PO BID 06/13/17 06/13/17 Unknown History Duloxetine HCl [Cymbalta] 20 mg PO DAILY 06/13/17 06/13/17 Unknown History Gabapentin [Neurontin] 100 mg PO DAILY 06/13/17 06/13/17 Unknown History Lisinopril [Zestril] 40 mg PO DAILY 06/13/17 06/13/17 Unknown History Ranitidine HCl 75 mg PO DAILY 06/13/17 06/13/17 Unknown History cloNIDine [Catapres] 0.1 mg PO DAILY 06/13/17 06/13/17 Unknown History ED Review of Systems ROS: Stated complaint: CHEST PAIN Other details as noted in HPI Constitutional: diaphoresis Respiratory: denies: shortness of breath Cardiovascular: chest pain Gastrointestinal: nausea, vomiting Musculoskeletal: myalgia Neurological: headache Physical Exam - Physical Exam Vital Signs: Vital Signs 06/13/17 06/13/17 13:34 18:31 Temperature 99.1 F 99.5 F Pulse Rate 99 H 77 Respiratory 20 16 Rate Blood Pressure 194/111 Blood Pressure 208/118 [Right] O2 Sat by Pulse 98 100 Oximetry Physical Exam: GENERAL: The patient is well-developed well-nourished female lying on stretcher not appearing to be in acute distress. [] HEENT: Normocephalic. Atraumatic. Extraocular motions are intact. Patient has moist mucous membranes. NECK: Supple. No meningitic signs are noted. Trachea midline CHEST/LUNGS: There is no respiratory distress noted. HEART/CARDIOVASCULAR: Regular. There is no tachycardia. ABDOMEN: Abdomen is soft, nontender. There is no abdominal distention. SKIN: There is no rash. There is no edema. There is no diaphoresis. NEURO: The patient is awake, alert, and oriented. The patient is cooperative. The patient has no focal neurologic deficits. The patient has normal speech. Cranial nerves II through XII grossly intact, no drift, insurance clerk equal bilaterally MUSCULOSKELETAL: There is no evidence of acute injury. ED Course Vital Signs 06/13/17 06/13/17 13:34 18:31 Temperature 99.1 F 99.5 F Pulse Rate 99 H 77 Respiratory 20 16 Rate Blood Pressure 194/111 Blood Pressure 208/118 [Right] O2 Sat by Pulse 98 100 Oximetry ED Medical Decision Making - Lab Data Result diagrams: 06/13/17 14:27 06/13/17 14:27 Laboratory Tests 06/13/17 06/13/17 06/13/17 14:27 14:27 16:55 WBC 11.1 H RBC 4.92 Hgb 14.4 H Hct 43.5 H MCV 89 MCH 29 MCHC 33 RDW 14.2 Plt Count 279 Lymph % (Auto) 12.9 L Mora % (Auto) 5.0 Eos % (Auto) 0.0 Baso % (Auto) 0.6 Lymph # 1.4 Mora # 0.6 Eos # 0.0 Baso # 0.1 Seg Neutrophils % 81.5 H Seg Neutrophils # 9.1 H D-Dimer Sodium 136 L Potassium 3.6 Chloride 92.8 L Carbon Dioxide 25 Anion Gap 22 BUN 9 Creatinine 0.4 L Estimated GFR > 60 BUN/Creatinine Ratio 23 Glucose 182 H Calcium 11.6 H Troponin T < 0.010 < 0.010 06/13/17 06/13/17 19:33 20:52 WBC RBC Hgb Hct MCV MCH MCHC RDW Plt Count Lymph % (Auto) Mora % (Auto) Eos % (Auto) Baso % (Auto) Lymph # Mora # Eos # Baso # Seg Neutrophils % Seg Neutrophils # D-Dimer 1364.31 H Sodium Potassium Chloride Carbon Dioxide Anion Gap BUN Creatinine Estimated GFR BUN/Creatinine Ratio Glucose Calcium Troponin T < 0.010 - EKG Data -: EKG Interpreted by Me EKG shows normal: sinus rhythm - EKG Data When compared to previous EKG there are: no significant change Interpretation: unchanged when compared t (09/12/2016) - Radiology Data Radiology results: report reviewed (CT head, CT cervical spine, VQ scan), image reviewed (CT head, CT cervical spine, chest x-ray, VQ scan) interpreted by me: Chest x-ray-no focal infiltrates, no pneumothorax FINAL REPORT PROCEDURE: CT HEAD/BRAIN WO CON TECHNIQUE: Computerized tomography of the head was performed without contrast material. HISTORY: headache after fall COMPARISON: No prior studies are available for comparison. FINDINGS: Skull and scalp: Normal. Paranasal sinuses: Normal. Ventricles and subarachnoid spaces: Normal. Cerebrum: No evidence of hemorrhage, acute infarction or mass . Cerebellum and brainstem: No evidence of hemorrhage, acute infarction or mass. Vasculature: Normal. Comments: None. IMPRESSION: Normal Examination Transcribed By: [facility] [place] Dictated By: LEENA DUFFY Electronically Authenticated By: LEENA DUFFY Signed Date/Time: 06/13/171717 DD/ 17 TD/TT: 06/13/171717 FINAL REPORT PROCEDURE: CT CERVICAL SPINE WO CON TECHNIQUE: Computerized tomography of the cervical spine was performed from the skull base to T1 without contrast material. HISTORY: pain after fall COMPARISON: No prior studies are available for comparison. FINDINGS: Patient has had anterior fusion at C7-T1. Posterior fusion, with pedicle screws and fixation rods, is seen from C6-T2. No screws are seen at the C7 level. There is grade 1 anterolisthesis of C7 on T1. No prevertebral edema is seen. Possible old unhealed fractures of the facets are seen at the C7 level with possible old unhealed fractures of the transverse processes of T1. IMPRESSION: There are likely old unhealed fractures of the facets at the C7 level and the transverse processes of T1. No evidence of hardware failure is seen. Transcribed By: [facility] Dictated By: ARMANDO MITCHELL JR, MD Electronically Authenticated By: ARMANDO MITCHELL JR, MD Signed Date/Time: 06/13/171735 DD/ 35 TD/TT: 06/13/171735 VQ scan (read by radiologist)-exam has very low probability for pulmonary embolus - Differential Diagnosis ICH, cervical fracture, PE, ACS, pericarditis, GERD Critical care attestation.: If time is entered above; I have spent that time in minutes in the direct care of this critically ill patient, excluding procedure time. ED Disposition Clinical Impression: Chest pain, Postconcussive syndrome Disposition: DC-09 OP ADMIT IP TO THIS HOSP Is pt being admited?: Yes Does the pt Need Aspirin: Yes Condition: Fair Instructions: Chest Pain (ED) Referrals: PRIMARY CARE, [Primary Care Provider] - 3-5 Days Time of Disposition: 01:38 (hospitalist paged)
--- NOTE | 2017-06-13 21:21 | Cat Scan Report ---
FINAL REPORT PROCEDURE: CT HEAD/BRAIN WO CON TECHNIQUE: Computerized tomography of the head was performed without contrast material. HISTORY: headache after fall COMPARISON: No prior studies are available for comparison. FINDINGS: Skull and scalp: Normal. Paranasal sinuses: Normal. Ventricles and subarachnoid spaces: Normal. Cerebrum: No evidence of hemorrhage, acute infarction or mass . Cerebellum and brainstem: No evidence of hemorrhage, acute infarction or mass. Vasculature: Normal. Comments: None. IMPRESSION: Normal Examination
[2017-06-13] MEDS ORDERED: FIORICET PO ONE (21:28)
--- NOTE | 2017-06-13 21:39 | Cat Scan Report ---
FINAL REPORT PROCEDURE: CT CERVICAL SPINE WO CON TECHNIQUE: Computerized tomography of the cervical spine was performed from the skull base to T1 without contrast material. HISTORY: pain after fall COMPARISON: No prior studies are available for comparison. FINDINGS: Patient has had anterior fusion at C7-T1. Posterior fusion, with pedicle screws and fixation rods, is seen from C6-T2. No screws are seen at the C7 level. There is grade 1 anterolisthesis of C7 on T1. No prevertebral edema is seen. Possible old unhealed fractures of the facets are seen at the C7 level with possible old unhealed fractures of the transverse processes of T1. IMPRESSION: There are likely old unhealed fractures of the facets at the C7 level and the transverse processes of T1. No evidence of hardware failure is seen.
[2017-06-13] MEDS ORDERED: NORMODYNE IV ONE (22:03)
[2017-06-14] MEDS ORDERED: ASPIRIN PO ONE (01:38)
[2017-06-14] MEDS ORDERED: MILK OF MAGNESIA PO PRN (02:48)
[2017-06-14] MEDS ORDERED: DULCOLAX PR PRN (02:48)
--- NOTE | 2017-06-14 02:56 | History and Physical Report ---
History of Present Illness Date of examination: 06/14/17 History of present illness: 67-year-old woman with history of hypertension, migraine, see emergency room with complaints of chest pain. Pain is in the epigastric area which she described as a dull pain, started yesterday, constant, intensity 5/10, no radiation, she cannot identify exacerbating or relieving factors. Admits to nausea and vomiting, no shortness of breath diaphoresis or palpitation. Status post fall yesterday went to [facility] workup was negative Review Of Systems: Constitutional: no weight loss Ears, eyes, nose, mouth and throat: no nasal congestion, no nasal discharge, no sinus pressure, blurry vision, diplopia Neck: No neck pain or rigidity. Cardiovascular:no orthopnea, palpitations Respiratory: No shortness of breath, cough Gastrointestinal: no abdominal pain, hematochezia Genitourinary : no dysuria, frequency , hematuria Musculoskeletal: no muscle ache Integumentary: no rash, no pruritis Neurological: no parathesias, focal weakness Endocrine: no cold or heat intolerance, no polyuria or polydipsia Hematologic/Lymphatic: no easy bruising, no easy bleeding, no gland swelling Allergic/Immunologic: no urticaria, no angioedema. PAST MEDICAL HISTORY:hypertension, migraine PAST SURGICAL HISTORY: Myomectomy, tubal ligation, neck surgery FAMILY HISTORY:hypertension SOCIAL HISTORY: Denies alcohol, tobacco, drugs Medications and Allergies Allergies Allergy/AdvReac Type Severity Reaction Status Date / Time amlodipine Allergy Rash Verified 09/10/13 21:27 hydralazine Allergy Hives Verified 09/12/16 10:31 hydrochlorothiazide Allergy Rash Verified 09/10/13 21:27 Sulfa (Sulfonamide Allergy Rash Verified 09/10/13 21:27 Antibiotics) Home Medications Medication Instructions Recorded Confirmed Last Taken Type Lisinopril [Zestril TAB] 40 mg PO QDAY 09/10/13 06/13/17 09/10/13 08:00 History Carvedilol [Coreg] 12.5 mg PO BID 06/13/17 06/13/17 Unknown History Duloxetine HCl [Cymbalta] 20 mg PO DAILY 06/13/17 06/13/17 Unknown History Gabapentin [Neurontin] 100 mg PO DAILY 06/13/17 06/13/17 Unknown History Lisinopril [Zestril] 40 mg PO DAILY 06/13/17 06/13/17 Unknown History Ranitidine HCl 75 mg PO DAILY 06/13/17 06/13/17 Unknown History cloNIDine [Catapres] 0.1 mg PO DAILY 06/13/17 06/13/17 Unknown History Exam - Physical Exam Narrative exam: Gen. appearance: Patient lying in bed in no acute distress HEENT: Normocephalic/atraumatic, pupils equal round reactive to light, extra alkaline movement intact, no scleral icterus, no JVD or thyromegaly or nodule, neck is supple, mucous membrane moist, no erythema or exudate Heart: S1-S2, regular rate and rhythm Lungs: Clear to auscultation bilateral breathing comfortable Abdomen: Positive bowel sounds, nontender, nondistended, no organomegaly Extremities: No edema, cyanosis, clubbing Neuro:: Oriented 3 , cranial nerves II-12 intact, speech, motor intact Skin: No rash, nodules, warm dry - Constitutional Vitals: Temp Pulse Resp BP Pulse Ox 99 F 78 13 100/62 100 06/13/17 19:05 06/14/17 02:00 06/14/17 02:00 06/14/17 02:00 06/13/17 19:05 Results - Labs CBC & Chem 7: 06/13/17 14:27 06/13/17 14:27 Labs: Abnormal lab results 06/13/17 06/13/17 06/13/17 Range/Units 14:27 14:27 20:52 WBC 11.1 H (4.5-11.0) K/mm3 Hgb 14.4 H (10.1-14.3) gm/dl Hct 43.5 H (30.3-42.9) % Lymph % (Auto) 12.9 L (13.4-35.0) % Seg Neutrophils % 81.5 H (40.0-70.0) % Seg Neutrophils # 9.1 H (1.8-7.7) K/mm3 D-Dimer 1364.31 H (0-234) ng/mlDDU Sodium 136 L (137-145) mmol/L Chloride 92.8 L (98-107) mmol/L Creatinine 0.4 L (0.7-1.2) mg/dL Glucose 182 H (65-100) mg/dL Calcium 11.6 H (8.4-10.2) mg/dL - Imaging and Cardiology EKG: image reviewed Chest x-ray: image reviewed CT Scan - head: report reviewed Assessment and Plan cervical c/spine, v/q reviewed Assessment Hypertensive urgency Chest pain secondary to #1 Migraine Plan Admit to medicine Start IV hydralazine, check cardiac enzymes, stress test Continue appropriate outpatient medications DVT prophylaxis
[2017-06-14 03:56] LABS: Creatine Kinase 60 units/L (30-135); Creatine Kinase MB 2.4 ng/mL (0.0-4.0)
[2017-06-14 06:58] LABS: Creatine Kinase MB 2.4 ng/mL (0.0-4.0)
[2017-06-14 06:59] LABS: Creatine Kinase 61 units/L (30-135)
--- NOTE | 2017-06-14 08:11 | XRay Report ---
AP CHEST : 06/13/17 13:23:00 CLINICAL: Chest pain. COMPARISON:09/15/16 FINDINGS: Normal heart and pulmonary vessels.Stable aortic tortuosity area The lungs are normally expanded and clear. The bones and soft tissues are unremarkable. IMPRESSION: No acute cardiopulmonary process. Hypertensive changes in aorta.
--- NOTE | 2017-06-14 08:20 | Event Note ---
Date: 06/14/17 Patient seen and examined medical records reviewed Admitted with hypertensive urgency and atypical chest pain,Workup so far negative Elevated d-dimer is, VQ scan done pending report Patient feels slightly better, complains of generalized weakness, Vital signs stable Agree with the current management. Follow V/Q Possible discharge in 1-2 days if stable
[2017-06-14] MEDS: NEURONTIN PO SCH (10:14)
[2017-06-14] MEDS: LOVENOX SUB-Q SCH (10:16)
[2017-06-14] MEDS: TYLENOL PO PRN ×2 (10:22→21:50)
[2017-06-14] MEDS: COREG PO SCH ×2 (18:34→21:47)
[2017-06-14] MEDS: CATAPRES PO SCH (18:34)
[2017-06-14] MEDS: ZESTRIL PO SCH (18:35)
[2017-06-15 05:15] LABS: Basophils % (Auto) 0.6 % (0.0-1.8); Eosinophils % (Auto) 1.5 % (0.0-4.3); Hemoglobin 12.7 gm/dl (10.1-14.3); Mean Corpuscular HGB Conc 33 % (30-34); Mean Corpuscular Hemoglobin 29 pg (28-32); Mean Corpuscular Volume 89 fl (79-97); Platelet Count 234 K/mm3 (140-440); Red Blood Count 4.41 M/mm3 (3.65-5.03); Red Cell Distribution Width 14.5 % (13.2-15.2); White Blood Count 8.6 K/mm3 (4.5-11.0)
[2017-06-15 05:31] LABS: Calcium 10.5 mg/dL (8.4-10.2); Potassium 3.3 mmol/L (3.6-5.0)
[2017-06-15] MEDS: ZOFRAN IV PRN (07:56)
[2017-06-15] MEDS ORDERED: LEXISCAN IV ONE ×2 (08:11→08:49)
--- NOTE | 2017-06-15 08:35 | Nuclear Medicine Report ---
Ventilation/perfusion lung scan: SOB. Right lower lobe embolus in August 2016. Upright posterior imaging during ventilation demonstrates bilateral mild retention of activity throughout both lungs. On the perfusion images with multiple projections there is a small focal area of decreased activity in the posterior lower right lung. The perfusion pattern bilaterally otherwise appears generally unremarkable. Impressions: The findings would be consistent with a right lower lobe subsegmental scar. Low suspicion of new pulmonary embolus.
[2017-06-15] MEDS: CATAPRES PO SCH (10:00)
[2017-06-15] MEDS: COREG PO SCH ×2 (10:00→21:47)
[2017-06-15] MEDS: ZESTRIL PO SCH (10:00)
--- NOTE | 2017-06-15 10:43 | Event Note ---
Date: 06/15/17 lexiscan stress: lv ef 69%. no evidence of myocardial ischemia or necrosis
--- NOTE | 2017-06-15 10:56 | Treadmill Report ---
NUCLEAR CARDIAC IMAGING INDICATION FOR PROCEDURE: Chest pain. Informed consent was obtained. Vasodilator stress was performed with the intravenous administration of 0.4 mg of Lexiscan per protocol. Rest and stress nuclear cardiac imaging was performed using the standard protocol with the intravenous administration of 10 mCi of technetium 99m Myoview and 28 mCi of technetium-99m Myoview for the rest and stress acquisition respectively. Gated SPECT imaging demonstrates a left ventricular ejection fraction of 69% with normal wall motion. Myocardial perfusion imaging demonstrates no significant cavity change between stress and rest. No significant stress-induced perfusion defects are seen. Nuclear cardiac imaging demonstrates grossly normal left ventricular systolic function with no significant evidence for myocardial ischemia or necrosis. [facility]# [id number]
[2017-06-15] MEDS ORDERED: K-DUR PO ONE (13:37)
--- NOTE | 2017-06-15 13:37 | Progress Note ---
Assessment and Plan Assessment and plan: 67-year-old female patient was admitted with hypertensive urgency and chest pain , elevated D dimers, negative PE on V/Q, underwent stress test, negative for reversible ischemia, awaiting SNF placement --Acute renal failure; vasomotor nephropathy Gentle hydration, closely monitor renal function, avoid nephrotoxic medications --Hypokalemia; potassium 3.3, replace 40 mEq of oral KCl , monitor levels --Hypertensive urgency; blood pressures reasonable control, continue current antihypertensives, when necessary hydralazine --Atypical chest pain; stress test negative, ejection fraction 69% Chest pain probably noncardiac --Chest pain due to gastroesophageal reflux disease; continue Pepcid --History of migraine headache; continue Fioricet --Hypercalcemia; trending down, IV fluids closely monitor --DVT prophylaxis; Lovenox --DC planning, but case management possible SNF placement when medically stable History Interval history: Patient seen and examined in her room Medical records reviewed Complains of mild headache Denies chest pain or shortness of breath Stress test negative for reversible ischemia Patient is alert awake oriented 3 not in acute distress Hospitalist Physical - Constitutional Vitals: Temp Pulse Resp BP Pulse Ox 98.7 F 64 18 114/77 90 06/15/17 12:33 06/15/17 12:34 06/15/17 12:33 06/15/17 12:33 06/15/17 12:34 General appearance: Present: no acute distress, well-nourished - EENT Eyes: Present: PERRL, EOM intact - Neck Neck: Present: supple, normal ROM - Respiratory Respiratory effort: normal Respiratory: bilateral: diminished, negative: rales, rhonchi, wheezing - Cardiovascular Rhythm: regular Heart Sounds: Present: S1 & S2 - Extremities Extremities: no ischemia, No edema - Abdominal General gastrointestinal: soft, non-tender, non-distended, normal bowel sounds - Integumentary Integumentary: Present: clear, warm - Psychiatric Psychiatric: appropriate mood/affect, cooperative - Neurologic Neurologic: CNII-XII intact, moves all extremities Results - Labs CBC & Chem 7: 06/15/17 04:51 06/15/17 04:51 Labs: Laboratory Last Values WBC 8.6 K/mm3 (4.5-11.0) 06/15/17 04:51 RBC 4.41 M/mm3 (3.65-5.03) 06/15/17 04:51 Hgb 12.7 gm/dl (10.1-14.3) 06/15/17 04:51 Hct 39.0 % (30.3-42.9) 06/15/17 04:51 MCV 89 fl (79-97) 06/15/17 04:51 MCH 29 pg (28-32) 06/15/17 04:51 MCHC 33 % (30-34) 06/15/17 04:51 RDW 14.5 % (13.2-15.2) 06/15/17 04:51 Plt Count 234 K/mm3 (140-440) 06/15/17 04:51 Lymph % (Auto) 36.9 % (13.4-35.0) H 06/15/17 04:51 [place] % (Auto) 10.9 % (0.0-7.3) H 06/15/17 04:51 Eos % (Auto) 1.5 % (0.0-4.3) 06/15/17 04:51 Baso % (Auto) 0.6 % (0.0-1.8) 06/15/17 04:51 Lymph # 3.2 K/mm3 (1.2-5.4) 06/15/17 04:51 [place] # 0.9 K/mm3 (0.0-0.8) H 06/15/17 04:51 Eos # 0.1 K/mm3 (0.0-0.4) 06/15/17 04:51 Baso # 0.1 K/mm3 (0.0-0.1) 06/15/17 04:51 Seg Neutrophils % 50.1 % (40.0-70.0) 06/15/17 04:51 Seg Neutrophils # 4.3 K/mm3 (1.8-7.7) 06/15/17 04:51 D-Dimer 1364.31 ng/mlDDU (0-234) H 06/13/17 20:52 Sodium 138 mmol/L (137-145) 06/15/17 04:51 Potassium 3.3 mmol/L (3.6-5.0) L 06/15/17 04:51 Chloride 96.0 mmol/L (98-107) L 06/15/17 04:51 Carbon Dioxide 28 mmol/L (22-30) 06/15/17 04:51 Anion Gap 17 mmol/L 06/15/17 04:51 BUN 36 mg/dL (7-17) H 06/15/17 04:51 Creatinine 1.5 mg/dL (0.7-1.2) H D 06/15/17 04:51 Estimated GFR 42 ml/min 06/15/17 04:51 BUN/Creatinine Ratio 24 % 06/15/17 04:51 Glucose 163 mg/dL (65-100) H 06/15/17 04:51 Calcium 10.5 mg/dL (8.4-10.2) H 06/15/17 04:51 Total Creatine Kinase 61 units/L (30-135) 06/14/17 06:17 CK-MB (CK-2) 2.4 ng/mL (0.0-4.0) 06/14/17 06:17 CK-MB (CK-2) Rel Index 3.9 (0-4) 06/14/17 06:17 Troponin T < 0.010 ng/mL (0.00-0.029) 06/14/17 06:17
[2017-06-15] MEDS: FIORICET PO PRN (14:43)
[2017-06-15] MEDS: NEURONTIN PO SCH (14:43)
[2017-06-15] MEDS: LOVENOX SUB-Q SCH (14:45)
[2017-06-15] MEDS ORDERED: NACL 0.9% 1000 ML 1,000 ML IV ONE (14:56)
[2017-06-16] MEDS: MORPHINE IV PRN ×3 (06:24→21:38)
[2017-06-16 07:03] LABS: Anion Gap 14 mmol/L; BUN/Creatinine Ratio 38; Blood Urea Nitrogen 23 mg/dL (7-17); Calcium 9.6 mg/dL (8.4-10.2); Carbon Dioxide 29 mmol/L (22-30); Chloride 107.1 mmol/L (98-107); Glucose 148 mg/dL (65-100); Sodium 146 mmol/L (137-145)
[2017-06-16] MEDS: LOVENOX SUB-Q SCH (09:31)
[2017-06-16] MEDS: NEURONTIN PO SCH (09:31)
[2017-06-16] MEDS: CATAPRES PO SCH (09:31)
[2017-06-16] MEDS: ZESTRIL PO SCH (09:31)
[2017-06-16] MEDS: COREG PO SCH ×2 (09:31→21:35)
--- NOTE | 2017-06-16 16:35 | Discharge Summary ---
Providers - Providers Date of Admission: 06/14/17 02:48 Date of discharge: 06/16/17 Attending physician: JOLLY DAY cardiology - Dr. Birch Primary care physician: SHIFT SUPERVISOR MELTING Hospitalization Reason for admission: chest pain Condition: Fair Pertinent studies: stress test julian was normal Procedures: none Hospital course: 67-year-old woman with history of hypertension, migraine, presented to the emergency room with complaints of chest pain. Pain is in the epigastric area which she described as a dull pain, started yesterday, constant, intensity 5/10 , no radiation, she cannot identify exacerbating or relieving factors. Admits to nausea and vomiting, no shortness of breath diaphoresis or palpitation. Status post fall 06/11/17. went to [place] workup was negative. Admitted for chest pain. Commenced on oxygen, ASA, NTG and morphine. Stress test was done. No ischemia identified. Chest pain resolve. POLLY identified as well as hypokalemia. Both corrected with iv hydration and supplementation respective.Discharged home today to f/u with PCP and out continuation of management of his migraine COLBY. and Disposition: DC-01 TO HOME OR SELFCARE Core Measure Documentation - Palliative Care Palliative Care/ Comfort Measures: Not Applicable - Core Measures Any of the following diagnoses?: none Exam - Constitutional Vitals: Temp Pulse Resp BP Pulse Ox 98.7 F 58 L 20 122/68 96 06/16/17 11:54 06/16/17 11:54 06/16/17 14:45 06/16/17 11:54 06/16/17 15:37 General appearance: Present: no acute distress, well-nourished - EENT Eyes: Present: PERRL - Neck Neck: Present: supple, normal ROM - Respiratory Respiratory effort: normal Respiratory: bilateral: CTA - Cardiovascular Heart Sounds: Present: S1 & S2. Absent: rub, click - Extremities Extremities: pulses symmetrical, No edema Peripheral Pulses: within normal limits - Abdominal General gastrointestinal: Present: soft, non-tender - Integumentary Integumentary: Present: clear, warm, dry - Musculoskeletal Musculoskeletal: gait normal, strength equal bilaterally - Psychiatric Psychiatric: appropriate mood/affect, intact judgment & insight - Neurologic Neurologic: CNII-XII intact, moves all extremities Plan Activity: advance as tolerated, fall precautions Weight Bearing Status: Weight Bear as Tolerated Diet: low cholesterol, low salt Follow up with: PRIMARY CARE, [Primary Care Provider] - 3-5 Days Prescriptions: Carvedilol [Coreg] 12.5 mg PO BID #60 tablet Codeine/Butalbital/ASA/Caffein [Fiorinal with Codeine #3 Cap] 1 each PO TID PRN #30 capsule PRN Reason: Headache Gabapentin [Neurontin] 100 mg PO BID #60 capsule Lisinopril [Zestril TAB] 40 mg PO QDAY #30 tablet Ranitidine HCl 75 mg PO DAILY #60 tablet
[2017-06-16] MEDS: NON-FORMULARY (Duloxetine Hcl [Cymbalta] 20 MG) PO SCH (22:10)
--- NOTE | 2017-06-17 09:07 | Progress Note ---
Assessment and Plan Assessment and plan: --Acute renal failure; vasomotor nephropathy, resolved --Hypokalemia; potassium 3.3, replace 40 mEq of oral KCl , monitor levels --Hypertensive urgency; blood pressures reasonable control, continue current antihypertensives, when necessary hydralazine --Atypical chest pain; stress test negative, ejection fraction 69% --Chest pain due to gastroesophageal reflux disease; continue Pepcid --History of migraine headache; continue Fioricet --Hypercalcemia; trending down, IV fluids closely monitor --DVT prophylaxis; Lovenox --DC planning, but case management possible SNF placement when medically stable --PT evaluation and management/DC planning History Interval history: Patient seen and examined No new complaints Awaiting placement Hospitalist Physical - Constitutional Vitals: Temp Pulse Resp BP Pulse Ox 98.4 F 61 18 134/73 95 06/17/17 04:32 06/17/17 04:32 06/17/17 04:32 06/17/17 04:32 06/17/17 04:32 General appearance: Present: no acute distress, well-nourished - EENT Eyes: Present: PERRL, EOM intact - Neck Neck: Present: supple, normal ROM - Respiratory Respiratory effort: normal Respiratory: bilateral: diminished, negative: rales, rhonchi, wheezing - Cardiovascular Rhythm: regular Heart Sounds: Present: S1 & S2 - Extremities Extremities: no ischemia, No edema - Abdominal General gastrointestinal: soft, non-tender, non-distended - Integumentary Integumentary: Present: clear, warm - Psychiatric Psychiatric: appropriate mood/affect, cooperative - Neurologic Neurologic: CNII-XII intact, moves all extremities Results - Labs CBC & Chem 7: 06/15/17 04:51 06/16/17 06:09 Labs: Laboratory Last Values WBC 8.6 K/mm3 (4.5-11.0) 06/15/17 04:51 RBC 4.41 M/mm3 (3.65-5.03) 06/15/17 04:51 Hgb 12.7 gm/dl (10.1-14.3) 06/15/17 04:51 Hct 39.0 % (30.3-42.9) 06/15/17 04:51 MCV 89 fl (79-97) 06/15/17 04:51 MCH 29 pg (28-32) 06/15/17 04:51 MCHC 33 % (30-34) 06/15/17 04:51 RDW 14.5 % (13.2-15.2) 06/15/17 04:51 Plt Count 234 K/mm3 (140-440) 06/15/17 04:51 Lymph % (Auto) 36.9 % (13.4-35.0) H 06/15/17 04:51 [place] % (Auto) 10.9 % (0.0-7.3) H 06/15/17 04:51 Eos % (Auto) 1.5 % (0.0-4.3) 06/15/17 04:51 Baso % (Auto) 0.6 % (0.0-1.8) 06/15/17 04:51 Lymph # 3.2 K/mm3 (1.2-5.4) 06/15/17 04:51 [place] # 0.9 K/mm3 (0.0-0.8) H 06/15/17 04:51 Eos # 0.1 K/mm3 (0.0-0.4) 06/15/17 04:51 Baso # 0.1 K/mm3 (0.0-0.1) 06/15/17 04:51 Seg Neutrophils % 50.1 % (40.0-70.0) 06/15/17 04:51 Seg Neutrophils # 4.3 K/mm3 (1.8-7.7) 06/15/17 04:51 D-Dimer 1364.31 ng/mlDDU (0-234) H 06/13/17 20:52 Sodium 146 mmol/L (137-145) H D 06/16/17 06:09 Potassium 4.0 mmol/L (3.6-5.0) D 06/16/17 06:09 Chloride 107.1 mmol/L (98-107) H 06/16/17 06:09 Carbon Dioxide 29 mmol/L (22-30) 06/16/17 06:09 Anion Gap 14 mmol/L 06/16/17 06:09 BUN 23 mg/dL (7-17) H 06/16/17 06:09 Creatinine 0.6 mg/dL (0.7-1.2) L D 06/16/17 06:09 Estimated GFR > 60 ml/min 06/16/17 06:09 BUN/Creatinine Ratio 38 % 06/16/17 06:09 Glucose 148 mg/dL (65-100) H 06/16/17 06:09 Calcium 9.6 mg/dL (8.4-10.2) 06/16/17 06:09 Magnesium 2.00 mg/dL (1.7-2.3) 06/16/17 06:09 Total Creatine Kinase 61 units/L (30-135) 06/14/17 06:17 CK-MB (CK-2) 2.4 ng/mL (0.0-4.0) 06/14/17 06:17 CK-MB (CK-2) Rel Index 3.9 (0-4) 06/14/17 06:17 Troponin T < 0.010 ng/mL (0.00-0.029) 06/14/17 06:17
[2017-06-17] MEDS: ZESTRIL PO SCH (10:08)
[2017-06-17] MEDS: CATAPRES PO SCH (10:08)
[2017-06-17] MEDS: COREG PO SCH ×2 (10:08→21:59)
[2017-06-17] MEDS: LOVENOX SUB-Q SCH (10:08)
[2017-06-17] MEDS: NEURONTIN PO SCH (10:08)
[2017-06-17] MEDS: NON-FORMULARY (Duloxetine Hcl [Cymbalta] 20 MG) PO SCH (10:09)
[2017-06-17] MEDS: FIORICET PO PRN (20:03)
[2017-06-17] MEDS: ZOFRAN IV PRN (20:06)
--- NOTE | 2017-06-18 09:44 | Progress Note ---
Assessment and Plan Assessment and plan: --Acute renal failure; vasomotor nephropathy, resolved --Hypokalemia; potassium 3.3, replace 40 mEq of oral KCl , monitor levels --Hypertensive urgency; blood pressures reasonable control, continue current antihypertensives, when necessary hydralazine --Atypical chest pain; stress test negative, ejection fraction 69% --Chest pain due to gastroesophageal reflux disease; continue Pepcid --History of migraine headache; continue Fioricet --Hypercalcemia; trending down, IV fluids closely monitor Medically stable for discharge Awaiting placement per casemanagement History Interval history: Patient seen and examined, medical records reviewed No new complaints Awaiting rehabilitation placement Hospitalist Physical - Constitutional Vitals: Temp Pulse Resp BP Pulse Ox 98.7 F 59 L 18 189/95 99 06/18/17 08:09 06/18/17 08:09 06/18/17 08:09 06/18/17 08:09 06/18/17 08:09 General appearance: Present: no acute distress, well-nourished - EENT Eyes: Present: PERRL, EOM intact - Neck Neck: Present: supple, normal ROM - Respiratory Respiratory effort: normal Respiratory: bilateral: diminished, negative: rales, rhonchi, wheezing - Cardiovascular Rhythm: regular Heart Sounds: Present: S1 & S2 - Extremities Extremities: no ischemia, No edema Peripheral Pulses: within normal limits - Abdominal General gastrointestinal: soft, non-tender, non-distended, normal bowel sounds - Integumentary Integumentary: Present: clear, warm - Psychiatric Psychiatric: appropriate mood/affect, cooperative - Neurologic Neurologic: CNII-XII intact, moves all extremities Results - Labs CBC & Chem 7: 06/15/17 04:51 06/16/17 06:09 Labs: Laboratory Last Values WBC 8.6 K/mm3 (4.5-11.0) 06/15/17 04:51 RBC 4.41 M/mm3 (3.65-5.03) 06/15/17 04:51 Hgb 12.7 gm/dl (10.1-14.3) 06/15/17 04:51 Hct 39.0 % (30.3-42.9) 06/15/17 04:51 MCV 89 fl (79-97) 06/15/17 04:51 MCH 29 pg (28-32) 06/15/17 04:51 MCHC 33 % (30-34) 06/15/17 04:51 RDW 14.5 % (13.2-15.2) 06/15/17 04:51 Plt Count 234 K/mm3 (140-440) 06/15/17 04:51 Lymph % (Auto) 36.9 % (13.4-35.0) H 06/15/17 04:51 [place] % (Auto) 10.9 % (0.0-7.3) H 06/15/17 04:51 Eos % (Auto) 1.5 % (0.0-4.3) 06/15/17 04:51 Baso % (Auto) 0.6 % (0.0-1.8) 06/15/17 04:51 Lymph # 3.2 K/mm3 (1.2-5.4) 06/15/17 04:51 [place] # 0.9 K/mm3 (0.0-0.8) H 06/15/17 04:51 Eos # 0.1 K/mm3 (0.0-0.4) 06/15/17 04:51 Baso # 0.1 K/mm3 (0.0-0.1) 06/15/17 04:51 Seg Neutrophils % 50.1 % (40.0-70.0) 06/15/17 04:51 Seg Neutrophils # 4.3 K/mm3 (1.8-7.7) 06/15/17 04:51 D-Dimer 1364.31 ng/mlDDU (0-234) H 06/13/17 20:52 Sodium 146 mmol/L (137-145) H D 06/16/17 06:09 Potassium 4.0 mmol/L (3.6-5.0) D 06/16/17 06:09 Chloride 107.1 mmol/L (98-107) H 06/16/17 06:09 Carbon Dioxide 29 mmol/L (22-30) 06/16/17 06:09 Anion Gap 14 mmol/L 06/16/17 06:09 BUN 23 mg/dL (7-17) H 06/16/17 06:09 Creatinine 0.6 mg/dL (0.7-1.2) L D 06/16/17 06:09 Estimated GFR > 60 ml/min 06/16/17 06:09 BUN/Creatinine Ratio 38 % 06/16/17 06:09 Glucose 148 mg/dL (65-100) H 06/16/17 06:09 Calcium 9.6 mg/dL (8.4-10.2) 06/16/17 06:09 Magnesium 2.00 mg/dL (1.7-2.3) 06/16/17 06:09 Total Creatine Kinase 61 units/L (30-135) 06/14/17 06:17 CK-MB (CK-2) 2.4 ng/mL (0.0-4.0) 06/14/17 06:17 CK-MB (CK-2) Rel Index 3.9 (0-4) 06/14/17 06:17 Troponin T < 0.010 ng/mL (0.00-0.029) 06/14/17 06:17
[2017-06-18] MEDS: CATAPRES PO SCH (10:16)
[2017-06-18] MEDS: NEURONTIN PO SCH (10:17)
[2017-06-18] MEDS: COREG PO SCH (10:17)
[2017-06-18] MEDS: ZESTRIL PO SCH (10:18)
[2017-06-18] MEDS: NON-FORMULARY (Duloxetine Hcl [Cymbalta] 20 MG) PO SCH (10:19)
[2017-06-18] MEDS: LOVENOX SUB-Q SCH (10:21)
[2017-06-18] MEDS: MORPHINE IV PRN (10:24)
[2017-06-18] MEDS ORDERED: APRESOLINE IV ONE (12:00)
--- NOTE | 2017-06-18 12:46 | Discharge Summary ---
Providers - Providers Date of Admission: 06/14/17 02:48 Date of discharge: 06/18/17 Attending physician: JOLLY DAY 06/17/17 17:48 Physical Therapy Evaluation and Treat [CONS] Routine Comment: Reason For Exam: evaluate and treat/d/c planning Primary care physician: CONVEYOR WEIGHER OPERATOR Hospitalization Condition: Fair Disposition: DC-01 TO HOME OR SELFCARE Core Measure Documentation - Palliative Care Palliative Care/ Comfort Measures: Not Applicable - Core Measures Any of the following diagnoses?: none Exam - Constitutional Vitals: Temp Pulse Resp BP Pulse Ox 98.7 F 63 18 189/95 97 06/18/17 08:09 06/18/17 10:35 06/18/17 08:09 06/18/17 10:18 06/18/17 10:35 General appearance: Present: no acute distress, well-nourished Plan Activity: advance as tolerated, fall precautions Diet: regular Special Instructions: physical therapy, occupational therapy Additional Instructions: If you have chest pain or shortness of breath ,contact MD or go to ER Follow up with: DOMITILA KLEIN MD [Primary Care Provider] - 3-5 Days ZEYNEP COFFMAN MD [Staff Physician] - 7 Days Prescriptions: Carvedilol [Coreg] 12.5 mg PO BID #60 tablet Codeine/Butalbital/ASA/Caffein [Fiorinal with Codeine #3 Cap] 1 each PO TID PRN #30 capsule PRN Reason: Headache Gabapentin [Neurontin] 100 mg PO BID #60 capsule Lisinopril [Zestril TAB] 40 mg PO QDAY #30 tablet Ranitidine HCl 75 mg PO DAILY #60 tablet Other Discharge Orders: Occupational Therapy (Amb) Location: Determined By Patient Physicial Therapy (Amb) Location: Determined By Patient
[2017-06-18 21:15] VITALS: BP 137/69
== END 2017-06-18 21:38 | disposition home or self-care (01) | DRG 391 ==
LOC: ED 13:23 → 4A 06-14 02:48
PROVIDERS: ADMIT Internal Medicine; ATTEND Internal Medicine
DX: K21.9 Gastro-esophageal reflux disease without esophagitis (principal); N17.0 Acute kidney failure with tubular necrosis; I16.0 Hypertensive urgency; E87.6 Hypokalemia; I10 Essential (primary) hypertension; E83.52 Hypercalcemia; Z98.51 Tubal ligation status; G43.909 Migraine, unspecified, not intractable, without status migrainosus; Z79.899 Other long term (current) drug therapy; F07.81 Postconcussional syndrome; Z82.49 Family history of ischemic heart disease and other diseases of the circulatory system; Z88.8 Allergy status to other drugs, medicaments and biological substances; Z88.2 Allergy status to sulfonamides
CPT/HCPCS: 36415; 70450; 71010; 72125; 78452; 78582; 80048; 82550; 82553; 83735; 84484; 85025; 85379; 93005; 93010; 93017; 96374; 96375; A9502; A9540; A9558; G8978-GP; G8979-GP; J1650; J2270; J2405; J2785; J3010; J7030